=== PATIENT | male | born 1960 | race Asian ===

== ENCOUNTER → 2018-08-26 | Day surgery (SDC) | payer OTHER ==
[2018-08-21 10:24] LABS: BASOPHILS % 0.7 % (0.0-1.0); EOSINOPHILS # (AUTO) 0.7 (0.0-0.4); EOSINOPHILS % 12.3 % (0.0-6.0); HEMATOCRIT 45.7 % (38.2-49.6); LYMPHOCYTES # (AUTO) 1.8 (1.0-3.2); LYMPHOCYTES % 33.8 % (18.0-39.1); MEAN CORPUSCULAR HEMOGLOBIN 30.1 pg (28-32); MEAN CORPUSCULAR HGB CONC 32.8 g/dL (31-35); MEAN CORPUSCULAR VOLUME 91.6 fL (81-99); MONOCYTES # (AUTO) 0.5 (0.2-0.8); MONOCYTES % 9.1 % (4.4-11.3); NEUTROPHILS # (AUTO) 2.4 (2.1-6.9); NEUTROPHILS % 43.7 % (38.7-80.0); PLATELET COUNT 181 x10e3/uL (140-360); RED BLOOD COUNT 4.99 x10e6/uL (4.3-5.7); RED CELL DISTRIBUTION WIDTH 13.7 % (11.7-14.4)
[2018-08-21 10:29] LABS: INR 0.89; PROTHROMBIN TIME 12.5 seconds (11.9-14.5)
[2018-08-21 10:50] LABS: ALANINE AMINOTRANSFERASE 21 IU/L (0-55); ALBUMIN 4.1 g/dL (3.5-5.0); ALBUMIN/GLOBULIN RATIO 1.2 (0.8-2.0); ALKALINE PHOSPHATASE 48 IU/L (40-150); ANION GAP 11.3 mmol/L (8-16); BLOOD UREA NITROGEN 14 mg/dL (7-26); BUN/CREATININE RATIO 16 (6-25); CALCIUM 9.5 mg/dL (8.4-10.2); CARBON DIOXIDE 28 mmol/L (22-29); CHLORIDE 104 mmol/L (98-107); CREATININE, SERUM 0.85 mg/dL (0.72-1.25); EST GLOMERULAR FILTRATION RATE > 60 ML/MIN (60-); GLUCOSE 92 mg/dL (74-118); POTASSIUM 4.3 mmol/L (3.5-5.1); SODIUM 139 mmol/L (136-145)
[~2018-08-26] MED LIST: ACETAMINOPHEN/CODEINE 300MG - 30MG TAB ONE; CRESTOR10 MG PO; DIPHENHYDRAMINE25 MG PO; FENTANYL CITRATE/PF 100MCG/2 ML INJ ONE; MIDAZOLAM HCL 2 MG/2 ML VIAL ONE; PROPOFOL IV EMULSION 10 MG/ML 50 ML VIAL ONE; VITAMIN D32000 UNI1 PEG; VITAMIN E400 UNI5 PO
--- OUTSIDE RECORDS SUMMARY | 2018-08-26 05:29 | XMS REPORT | Clinical Summary ---
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 Suspended cholecalciferol, vitamin Take by mouth 0 D3, (VITAMIN D3) 2,000 daily . unit Cap Suspended docosahexanoic acid/epa Take 1,400 mg 0 (FISH OIL ORAL) by mouth daily. Suspended rosuvastatin (CRESTOR) 10 Take 10 mg by 0 MG tablet mouth daily. Suspended diphenhydrAMINE Take 25 mg by 0 (BENADRYL) 25 mg capsule mouth every night as needed for Itching Zzzquil brand name . 08/26/2017 docusate sodium (COLACE) Take 1 10 capsule 0 100 MG capsule capsule (100 8 mg total) by mouth 2 (two) times daily for 10 days. 08/26/2017 traMADol (ULTRAM) 50 mg Take 2 50 tablet 0 tablet tablets (100 8 mg total) by mouth every 6 (six) hours as needed for up to 10 days. Max Daily Amount: 400 mg 08/26/2017 ibuprofen (ADVIL,MOTRIN) Take 1 tablet 30 tablet 0 400 MG tablet (400 mg 8 total) by mouth every 6 (six) hours as needed for Pain for up to 10 days. Suspended ondansetron (ZOFRAN) 8 MG Take 8 mg by 0 tablet mouth every 8 (eight) hours as needed for Nausea. Active Problems Problem Noted Date Lung cancer 08/13/2017 Cancer of upper lobe of left lung 08/02/2017 Encounters Care Team Description Date Type Specialty Cipriano Peacock MD Cancer of upper lobe of left lung (HCC) 08/21/2018 Hospital Radiology Encounter GillilandJulio Chi 08/21/2018 Orders Only Radiology [facility] Cancer of upper lobe of left lung (HCC) 07/21/2018 Hospital Computed Tomography Encounter Cipriano Peacock MD Cancer of upper lobe of left lung (HCC) (Primary Dx) 07/15/2018 Outside Orders Central Scheduling Laura Lima MD Cancer of upper lobe of left lung (HCC) (Primary Dx) 10/30/2017 Orders Only Lab Laura Lima MD Cancer of upper lobe of left lung (HCC) 10/30/2017 Hospital Radiology Encounter Laura Lima MD Cancer of upper lobe of left lung (HCC) (Primary Dx) 10/28/2017 Outside Orders Central Scheduling after 08/25/2017 Family History Medical History Relation Name Comments Hypertension Father Heart disease Mother Relation Name Status Comments Father Mother Social History Date Tobacco Use Types Packs/Day Years Used Quit: 07/31/1997 Former Smoker 1 Smokeless Tobacco: Never Used Tobacco Cessation: Counseling Given: No Comments: QUIT 1997 Alcohol Use Drinks/Week oz/Week Comments No Sex Assigned at Date Recorded Not on file Industry Job Start Date Occupation Not on file Not on file Not on file Travel End Travel History Travel Start No recent travel history available. Last Filed Vital Signs Time Taken Vital Sign Reading 08/21/2018 12:40 PM CDT Blood Pressure 122/83 08/21/2018 12:40 PM CDT Pulse 63 08/21/2018 12:40 PM CDT Temperature 36.8 C (98.2 F) 08/21/2018 12:40 PM CDT Respiratory Rate 13 08/21/2018 12:40 PM CDT Oxygen Saturation 100% - Inhaled Oxygen - Concentration 08/21/2018 11:00 AM CDT Weight 81.6 kg (180 lb) 08/21/2018 11:00 AM CDT Height 167.6 cm (5' 6") 08/21/2018 11:00 AM CDT Body Mass Index 29.05 Plan of Treatment Not on file Implants Device Identifier Shelf Expiration Date Model / Serial / Lot Implanted Type Area Manufactur er 04/29/2021 [id number] / / [id number] 4x7mm Fiducial Marker Other Left: Bronchus COVIDIEN Implanted: Qty: 1 on 08/02/2017 by Karrie Dickson MD Procedures * The patient is currently admitted. The information in this section might not be complete until the patient is discharged. Comments Procedure Name Priority Date/Time Associated Diagnosis IR PORT REMOVAL Routine 08/21/2018 Cancer of upper lobe of 12:48 PM CDT left lung (HCC) CBC W/PLT COUNT & AUTO Routine 08/21/2018 DIFFERENTIAL 10:49 AM CDT APTT Routine 08/21/2018 10:49 AM CDT PROTHROMBIN TIME/INR Routine 08/21/2018 10:49 AM CDT CBC W/PLT COUNT & AUTO Routine 08/21/2018 DIFFERENTIAL 10:[address] CHEST WITH IV CONTRAST Routine 07/21/2018 Cancer of upper lobe of 9:20 AM CDT left lung (HCC) POCT-CREATININE Routine 07/21/2018 8:49 AM CDT INTRAOPERATIVE PATH 05/23/2018 REPORT - SCAN 10:02 AM CDT IR PORT-A-CATH PLACEMENT Routine 10/30/2017 Cancer of upper lobe of 11:25 AM CDT left lung (HCC) CBC W/PLT COUNT & AUTO STAT 10/30/2017 Cancer of upper lobe of DIFFERENTIAL 8:49 AM CDT left lung (HCC) CBC W/PLT COUNT & AUTO STAT 10/30/2017 Cancer of upper lobe of DIFFERENTIAL 8:49 AM CDT left lung (HCC) PT/APTT STAT 10/30/2017 Cancer of upper lobe of 8:49 AM CDT left lung (HCC) after 08/25/2017 Results * IR Port Removal (08/21/2018 12:48 PM CDT) Specimen Narrative Performed At FINAL REPORT GE RIS Procedure: Removal of right chest port 08/21/2018 HISTORY: Chemotherapy completed Anesthesia: 2% lidocaine Analgesia: 50 mcg fentanyl Approach: Right chest Modality: Fluoroscopy, fluoroscopy time: 0.2 minutes, total dose: 0.7 mGy, reference air kerma method TECHNIQUE: After obtaining written informed consent, this procedure was performed using all elements maximal sterile barrier technique without immediate postprocedural complication. Using blunt and sharp dissection, the right chest port was excised. The pocket was irrigated with gentamycin solution and closed with subcuticular resorbable suture. CONCLUSION: Removal of right chest port Signed: Rola Crowley MD Report Verified Date/Time:08/21/2018 13:31:45 Reading Location: [place] [address] Angio Body Reading Room Procedure Note Interface, External Ris In - 08/21/2018 1:33 PM CDT FINAL REPORT Procedure: Removal of right chest port 08/21/2018 HISTORY: Chemotherapy completed Anesthesia: 2% lidocaine Analgesia: 50 mcg fentanyl Approach: Right chest Modality: Fluoroscopy, fluoroscopy time: 0.2 minutes, total dose: 0.7 mGy, reference air kerma method TECHNIQUE: After obtaining written informed consent, this procedure was performed using all elements maximal sterile barrier technique without immediate postprocedural complication. Using blunt and sharp dissection, the right chest port was excised. The pocket was irrigated with gentamycin solution and closed with subcuticular resorbable suture. CONCLUSION: Removal of right chest port Signed: Rola Crowley MD Report Verified Date/Time: 08/21/2018 13:31:45 Reading Location: [place] [address] Angio Body Reading Room Performing Organization Address City/State/Zipcode Phone Number [facility] * CBC with platelet count + automated diff (08/21/2018 10:49 AM CDT) Only the most recent of 2 results within the time period is included. WBC 5.7 3.5 - 10.5 K/L [facility] RBC 5.26 4.63 - 6.08 M/L [facility] Hemoglobin 15.5 13.7 - 17.5 GM/DL [facility] Hematocrit 49.3 40.1 - 51.0 % [facility] MCV 93.7 (H) 79.0 - 92.2 fL [facility] MCH 29.5 25.7 - 32.2 pg [facility] MCHC 31.4 (L) 32.3 - 36.5 GM/DL [facility] RDW 13.6 11.6 - 14.4 % [facility] Platelets 185 150 - 450 K/CU MM [facility] MPV 9.3 (L) 9.4 - 12.4 fL [facility] nRBC 0 0 - 0 /100 WBC [facility] % Neutros 42 % [facility] % Lymphs 37 % [facility] % Monos 8 % [facility] % Eos 12 % [facility] % Baso 1 % [facility] # Neutros 2.39 1.78 - 5.38 K/L [facility] # Lymphs 2.09 1.32 - 3.57 K/L [facility] # Monos 0.48 0.30 - 0.82 K/L [facility] # Eos 0.68 (H) 0.04 - 0.54 K/L [facility] # Baso 0.04 0.01 - 0.08 K/L [facility] Immature 0 0 - 1 % [facility] Granulocytes-Relative [facility] Specimen Blood Performing Organization Address City/[facility]/Zipcode Phone Number [facility] [address] [place], [place] [phone] [facility] * aPTT (08/21/2018 10:49 AM CDT) PTT 31.0 22.5 - 36.0 seconds [facility] Specimen Blood Performing Organization Address City/[facility] Phone Number [facility] [address] [place], [place] [phone] [facility] * Prothrombin time/INR (08/21/2018 10:49 AM CDT) Protime 12.4 11.9 - 14.2 seconds [facility] INR 1.0 <=5.9 [facility] Specimen Blood Narrative Performed At Effective 07/09/2018: PT Reference Range Change [facility] New: 11.9-14.2Previous: 11.7-14.7 [facility] RECOMMENDED COUMADIN/WARFARIN INR THERAPY RANGES STANDARD DOSE: 2.0-3.0Includes: PROPHYLAXIS for venous thrombosis, systemic embolization; TREATMENT for venous thrombosis and/or pulmonary embolus. HIGH RISK: Target INR is 2.5-3.5 for patients wiht mechanical heart valves. Performing Organization Address [facility] Phone Number [place] [phone] [place] [address] [facility] * CT Chest with IV Contrast (07/21/2018 9:20 AM CDT) Specimen Narrative Performed At FINAL REPORT [employer] EXAM: CT Chest WITH contrast 07/21/2018 9:28 AM INDICATION:cancer upper lobe left lung COMPARISON: CT chest 02/24/2018 and 01/15/2018 TECHNIQUE: Chest was scanned utilizing a multidetector helical scanner from the lung apex through the level of the adrenal glands after administration of IV contrast. Coronal and sagittal reformations were obtained. IV CONTRAST: 100 mL of Isovue-300 ORAL CONTRAST: None COMPLICATIONS: None RADIATION DOSE: Total DLP: 475.5 mGy*cm Estimated effective dose: (DLP x 0.015 x size factor) mSv CTDIvol has been reviewed. It is below the limits set by the Radiation Protocol Committee (RPC). FINDINGS: LINES/ TUBES: Right-sided chest port remains in place. LUNGS AND AIRWAYS:Stable left upper lobectomy postsurgical changes. Mild scarring in the left lower lobe remains stable. A 2 mm groundglass nodule in the right upper lobe on series 2, image 35, previously measured 4 mm. No new pulmonary nodules. Airways are normal. PLEURA: The pleural spaces are clear. HEART AND MEDIASTINUM: The thyroid gland is normal.No mediastinal, hilar or axillary lymphadenopathy.The heart is normal in size. There is no pericardial effusion.Diffuse coronary artery calcifications.The thoracic aorta and pulmonary arteries are unremarkable. UPPER ABDOMEN: Unremarkable. BONES: The visualized bony thorax is within normal limits. SOFT TISSUES: Unremarkable. IMPRESSION: Stable left upper lobectomy postsurgical changes. No recurrent or metastatic disease in the chest. Signed: Loretta Cannon MD Report Verified Date/Time:07/22/2018 14:02:41 Procedure Note Interface, External Ris In - 07/22/2018 2:04 PM CDT FINAL REPORT EXAM: CT Chest WITH contrast 07/21/2018 9:28 AM INDICATION: cancer upper lobe left lung COMPARISON: CT chest 02/24/2018 and 01/15/2018 TECHNIQUE: Chest was scanned utilizing a multidetector helical scanner from the lung apex through the level of the adrenal glands after administration of IV contrast. Coronal and sagittal reformations were obtained. IV CONTRAST: 100 mL of Isovue-300 ORAL CONTRAST: None COMPLICATIONS: None RADIATION DOSE: Total DLP: 475.5 mGy*cm Estimated effective dose: (DLP x 0.015 x size factor) mSv CTDIvol has been reviewed. It is below the limits set by the Radiation Protocol Committee (RPC). FINDINGS: LINES/ TUBES: Right-sided chest port remains in place. LUNGS AND AIRWAYS: Stable left upper lobectomy postsurgical changes. Mild scarring in the left lower lobe remains stable. A 2 mm groundglass nodule in the right upper lobe on series 2, image 35, previously measured 4 mm. No new pulmonary nodules. Airways are normal. PLEURA: The pleural spaces are clear. HEART AND MEDIASTINUM: The thyroid gland is normal. No mediastinal, hilar or axillary lymphadenopathy. The heart is normal in size. There is no pericardial effusion. Diffuse coronary artery calcifications. The thoracic aorta and pulmonary arteries are unremarkable. UPPER ABDOMEN: Unremarkable. BONES: The visualized bony thorax is within normal limits. SOFT TISSUES: Unremarkable. IMPRESSION: Stable left upper lobectomy postsurgical changes. No recurrent or metastatic disease in the chest. Signed: Loretta Cannon MD Report Verified Date/Time: 07/22/2018 14:02:41 Performing Organization Address City/[facility] Phone Number [employer] * POC-Creatinine (07/21/2018 8:49 AM CDT) POC-Creatinine 1.0Comment: TESTED AT [facility] 0.6 - 1.3 mg/dL [place] [id number] [place] [address] POC-EGFR 77 mL/min/1.73M2 [facility] Specimen Blood Performing Organization Address [facility] Phone Number [facility] [address] [place] [address] [phone] [place] [address] * INTRAOPERATIVE PATH REPORT - SCAN (05/23/2018 10:02 AM CDT) Narrative Performed At * IR Port-a-Cath Placement (10/30/2017 11:25 AM CDT) Specimen Narrative Performed At FINAL REPORT [facility] HISTORY: Lung cancer PROCEDURE: Following informed written consent, the patient's right cervical region and anterior chest wall were prepped draped in the usual sterile manner and maximum sterile barrier techniques were utilized. 2% lidocaine was given locally for anesthesia. Additionally, the patient received 1 mg IV Versed and 50 mcg IV fentanyl for conscious sedation and pain control. Vital signs were monitored and remained stable. 1 g IV vancomycin was given prior to the procedure for antibiotic prophylaxis. Conscious sedation and continuous patient monitoring were performed by the attending radiologist and a registered nurse for approximately 30 minutes during the procedure. Access was gained to the right internal jugular vein using ultrasound guidance a micropuncture needle. A short transverse incision was made in the right anterior chest wall. Using blunt dissection, a subcutaneous pocket was created just beneath the incision. The micah catheter was tunneled from the pocket to the jugular access site in place through a peel-away sheath into position centrally under fluoroscopic control. The catheter was cut to appropriate length and attached to the portacatheter reservoir which was subsequently buried in the subcutaneous. The pocket was irrigated using an antibiotic solution enclosed using 3-0 Monocryl resorbable suture. Steri-Strips, dermabond and a sterile bandage were applied. There were no immediate complications. Patient was discharged from the department in stable condition. FINDINGS: Spot film of the chest following portacatheter placement demonstrates the portacatheter to lie in expected position with its tip over the caval atrial junction. There is no pneumothorax. Ultrasound image obtained prior to port placement demonstrates a patent and compressible right internal jugular vein without evidence for thrombosis. Ultrasound image of the right internal jugular vein was obtained and archived on PACs. IMPRESSION: 1. Successful uncomplicated placement of a right internal jugular chest port. Fluoroscopy time: 0.6 minutes Estimated dose in (Ka,r): 4.3 mGy Signed: Fausto Dunn MD Report Verified Date/Time:10/30/2017 15:40:30 Reading Location: [place] [address] Angio Body Reading Room Procedure Note Interface, External Ris In - 10/30/2017 3:42 PM CDT FINAL REPORT HISTORY: Lung cancer PROCEDURE: Following informed written consent, the patient's right cervical region and anterior chest wall were prepped draped in the usual sterile manner and maximum sterile barrier techniques were utilized. 2% lidocaine was given locally for anesthesia. Additionally, the patient received 1 mg IV Versed and 50 mcg IV fentanyl for conscious sedation and pain control. Vital signs were monitored and remained stable. 1 g IV vancomycin was given prior to the procedure for antibiotic prophylaxis. Conscious sedation and continuous patient monitoring were performed by the attending radiologist and a registered nurse for approximately 30 minutes during the procedure. Access was gained to the right internal jugular vein using ultrasound guidance a micropuncture needle. A short transverse incision was made in the right anterior chest wall. Using blunt dissection, a subcutaneous pocket was created just beneath the incision. The micah catheter was tunneled from the pocket to the jugular access site in place through a peel-away sheath into position centrally under fluoroscopic control. The catheter was cut to appropriate length and attached to the portacatheter reservoir which was subsequently buried in the subcutaneous. The pocket was irrigated using an antibiotic solution enclosed using 3-0 Monocryl resorbable suture. Steri-Strips, dermabond and a sterile bandage were applied. There were no immediate complications. Patient was discharged from the department in stable condition. FINDINGS: Spot film of the chest following portacatheter placement demonstrates the portacatheter to lie in expected position with its tip over the caval atrial junction. There is no pneumothorax. Ultrasound image obtained prior to port placement demonstrates a patent and compressible right internal jugular vein without evidence for thrombosis. Ultrasound image of the right internal jugular vein was obtained and archived on PACs. IMPRESSION: 1. Successful uncomplicated placement of a right internal jugular chest port. Fluoroscopy time: 0.6 minutes Estimated dose in (Ka,r): 4.3 mGy Signed: Fausto Dunn MD Report Verified Date/Time: 10/30/2017 15:40:30 Reading Location: [place] [address] Angio Body Reading Room Performing Organization Address City/[facility] Phone Number GE [facility] * PT/aPTT (10/30/2017 8:49 AM CDT) Protime 12.5 11.7 - 14.7 seconds [facility] INR 0.9 <=5.9 [facility] PTT 29.8 22.5 - 36.0 seconds [facility] Specimen Blood Narrative Performed At RECOMMENDED COUMADIN/WARFARIN INR THERAPY RANGES [facility] STANDARD DOSE: 2.0 - 3.0 Includes: PROPHYLAXIS for venous thrombosis, [facility] systemic embolization; TREATMENT for venous thrombosis and/or pulmonary embolus. HIGH RISK: Target INR is 2.5-3.5 for patients with mechanical heart valves. Performing Organization Address City/[facility] Phone Number [facility] [address] [place] [address] [facility] after 08/25/2017 Insurance Payer Benefit Subscriber ID Type Phone Address Plan / Group [employer] xxxxxxxxxx [employer] EXCHANGE Advance Directives For more information, please contact: [address] [phone] Date Inactivated Comments Code Status Date Activated 08/16/2017 6:01 PM Full Code 08/13/2017 5:33 AM This code status was determined by: Patient
--- OUTSIDE RECORDS SUMMARY | 2018-08-26 05:30 | XMS REPORT | Continuity of Care Document ---
Author Author [employer] Organization [employer] Address Unknown Phone Unavailable Care Team Providers Care Analyst Microbiology Lab Name Role Phone [employer] Unavailable Unavailable Problems Problem Status Onset Date Classification Date Reported Comments Source Chronic hepatitis B Active Diagnosis 11/09/2017 Giinder Gates Mixed hyperlipidemia Active Diagnosis 11/09/2017 Giinder Gates Body mass index 29.0-29.9, adult Active Diagnosis 07/21/2016 Giinder Williamson Gates Encounter for general adult medical examination with abnormal findings Active Diagnosis 05/10/2017 Giinder Gates Osteoarthritis of spine with radiculopathy, cervical region Active Diagnosis 11/09/2017 Giinder Almanzaroc Gates Encounter for screening for malignant neoplasm of prostate Active Diagnosis 05/10/2017 Giinder Gates Lung mass Active Problem 10/12/2017 Giinder Gates Prediabetes Active Problem 11/09/2017 Giinder Gates Body mass index 30.0-30.9, adult Active Diagnosis 05/10/2017 Giinder Gates Subacute sinusitis, unspecified location Active Diagnosis 05/10/2017 Giinder Gates Obesity Active Diagnosis 05/10/2017 Giinder Gates Seasonal allergic rhinitis, unspecified trigger Active Diagnosis 11/09/2017 Giinder Gates Body mass index 27.0-27.9, adult Active Diagnosis 10/12/2017 Giinder Gates Malignant neoplasm of left lung, unspecified part of lung Active Diagnosis 11/09/2017 Giinder Gates Cold Active Diagnosis 10/12/2017 Giinder Gates Status post pneumonectomy Active Problem 11/09/2017 Giinder Gates Personal history of lung cancer Active Problem 11/09/2017 Giinder Gates Body mass index 28.0-28.9, adult Active Diagnosis 11/09/2017 Giinder Almanzaroc Gates Encounter for immunization Active Diagnosis 11/09/2017 Giinder Gates Hepatitis B Active Problem 07/29/2015 Tashi Gates Pruritus Active Diagnosis 07/29/2015 Tashi Youngbloodang Encounter for general adult medical examination without abnormal findings Active Diagnosis 07/29/2015 Tashi Gates Medications Medication Details Route Status Patient Instructions Ordering Provider Order Date Source Zithromax Z-Adrien 2 tablets on the first day, then 1 tablet daily for 4 days Orally Active 250 MG Orally Once a day [facility] 10/10/2017 Tashi Youngbloodang Zithromax Z-Adrien 2 tablets on the first day, then 1 tablet daily for 4 days Orally Active 250 MG Orally Once a day [facility] 09/04/2017 Tashi Gates Mucinex DM 1 tablet as needed Orally Active 30-600 MG Orally every 12 hrs [facility] 09/04/2017 Tashi Gates Tramadol HCl 1 tablet as needed Orally Active 50 MG Orally BID [facility] 09/04/2017 Tashi Gates PredniSONE 1 tablet with food or milk Orally Active 10 MG Orally Once a day [facility] 05/08/2017 Tashi Gates Azelastine HCl 1 drop into affected eye Ophthalmic Active 0.05 % Ophthalmic Twice a day [facility] 05/08/2017 Tashi Gates Pazeo 1 drop to affected eyes Eyes Active 0.7 % Eyes once a day [facility] 05/08/2017 Tashi Teri Gates Ceftin 1 tab Orally Active 500 MG Orally BID [facility] 05/08/2017 [facility] Flutic[facility] Propionate 1 spray in each nostril Nasally Active 50 MCG/DOSE Nasally Twice a day [facility] 05/08/2017 Tashi Teri Gates Gabapentin 1 capsule at bedtime Orally Active 300 MG Orally once a day [facility] 07/18/2016 [facility] Clotrimazole-Betamethasone 1 application to affected area Externally Active 1-0.05 % Externally Twice a day [facility] 07/18/2016 Tashi Almanzaroc Gates Clotrimazole 1 application to affected area Externally Active 1 % Externally Twice a day [facility] 05/16/2015 [facility] HydrOXYzine HCl 1 tab Orally Active 25 MG Orally Three times a day [facility] Triamcinolone Acetonide 1 application to affected area Externally Active 0.1 % Externally Twice a day SALAZARVINCENT Gates Crestor 1 tablet Orally Active 10 MG Orally Once a day SALAZARVINCENT Gates HydrOXYzine HCl 1 tab Orally Active 25 MG Orally Three times a day MARTIN Gates Gabapentin 1 capsule at bedtime Orally Active 300 MG Orally once a day MARTIN Gates Triamcinolone Acetonide 1 application to affected area Externally Active 0.1 % Externally Twice a day SALAZARSHELIA Gates Clotrimazole-Betamethasone 1 application to affected area Externally Active 1-0.05 % Externally Twice a day SALAZARSHELIA Gates Crestor 1 tablet Orally Active 10 MG Orally Once a day SALAZARVINCENT Gates Fluticasone Propionate 1 spray in each nostril Nasally Active 50 MCG/DOSE Nasally Twice a day MARTIN Gates Azelastine HCl 1 drop into affected eye Ophthalmic Active 0.05 % Ophthalmic Twice a day SALAZARSHELIA Gates Mucinex DM 1 tablet as needed Orally Active 30-600 MG Orally every 12 hrs SALAZARSHELIA Gates Tramadol HCl 1 tablet as needed Orally Active 50 MG Orally BID SALAZARSHELIA Gates Allergies, Adverse Reactions, Alerts Substance Category Reaction Severity Reaction type Status Date Reported Comments Source N.K.D.A. Adverse Reaction Info Not Available Adverse Reaction Active 11/06/2017 Tashi Gates Immunizations Immunization Date Given Site Status Last Updated Comments Source FLUCELVAX QUADRIVALENT 11/06/2017 completed Tashi Gates FLUCELVAX QUADRIVALENT 01/09/2017 completed Tashi Gates Results No Data Provided for This Section Pathology Reports No Data Provided for This Section Diagnostic Reports No Data Provided for This Section Consultation Notes No Data Provided for This Section Discharge Summaries No Data Provided for This Section History and Physicals No Data Provided for This Section Vital Signs Vital Sign Value Date Comments Source Weight 180 11/06/2017 Tashi Gates Height 67 11/06/2017 Tashi Gates Heart Rate 73 11/06/2017 Tashi Gates Diastolic (mm Hg) 81 11/06/2017 Tashi Gates Systolic (mm Hg) 122 11/06/2017 Tashi Gates Weight 174 10/10/2017 Giao Teri Gates Height 67 10/10/2017 Giao Teri Gates Heart Rate 93 10/10/2017 Giao Teri Gates Diastolic (mm Hg) 74 10/10/2017 Giao Teri Gates Systolic (mm Hg) 114 10/10/2017 Giao Teri Gates Weight 177 09/04/2017 Giao Teri Gates Height 67 09/04/2017 Giao Teri Gates Heart Rate 94 09/04/2017 Giao Teri Gates Diastolic (mm Hg) 80 09/04/2017 Giao Teri Gates Systolic (mm Hg) 122 09/04/2017 Giao Teri Gates Weight 193.4 05/08/2017 Giao Teri Gates Height 67 05/08/2017 Giao Teri Gates Heart Rate 70 05/08/2017 Giao Teri Gates Diastolic (mm Hg) 69 05/08/2017 Giao Teri Gates Systolic (mm Hg) 113 05/08/2017 Giao Teri Gates Weight 193 01/09/2017 Giao Teri Gates Height 67 01/09/2017 Giao Teri Gates Heart Rate 76 01/09/2017 Giao Teri Gates Diastolic (mm Hg) 84 01/09/2017 Giao Teri Gates Systolic (mm Hg) 123 01/09/2017 Giao Teri Gates Weight 189.9 07/18/2016 Giao Teri Gates Height 67 07/18/2016 Giao Teri Gates Heart Rate 72 07/18/2016 Giao Teri Gates Diastolic (mm Hg) 83 07/18/2016 Giao Teri Gates Systolic (mm Hg) 125 07/18/2016 Giao Teri Agtes Weight 186.7 05/16/2015 Giao Teri Gates Height 67 05/16/2015 Giao Teri Gates Heart Rate 71 05/16/2015 Giao Teri Gates Diastolic (mm Hg) 64 05/16/2015 Giao Teri Gates Systolic (mm Hg) 115 05/16/2015 Giao Teri Gates Encounters Location Location Details Encounter Type Encounter Number Reason For Visit Attending Provider ADM Date DC Date Status Source Tashi Gates MD PA Consult [id number] 04/05/2014 04/05/2014 Tashi Gates MD PA Follow- Up [id number] 07/05/2014 07/05/2014 Tashi Gates MD PA Blood Test Result [id number] 08/16/2014 08/16/2014 Tashi Gates MD PA Blood Test [id number] 12/03/2014 12/03/2014 Tashi Gates MD PA Follow- Up [id number] 05/16/2015 05/16/2015 Tashi Gates Procedures No Data Provided for This Section Assessment and Plan No Data Provided for This Section Plan of Care No Data Provided for This Section Social History Social History Date Source Social History ElementQualifiersDate Reported drug use . no, no August 16, 2015 Tobacco Use: . Are you a: nonsmoker, Are you a: nonsmoker August 16, 2015 Pets: . NO, NO August 16, 2015 Marital Status: . , August 16, 2015 Caffeine: . YES, YES August 16, 2015 Alcohol: . yes, socially, beer, LIQUOR, WINE, yes, socially, beer, LIQUOR, WINE August 16, 2015 08/16/2015 Tashi Gates Family History Value Date Source QualifierDescriptionCommentDate Reported Maternal Grandmother Comment not available August 16, 2015 Paternal Grandmother Comment not available August 16, 2015 Siblings Comment not available August 16, 2015 Maternal Grandfather Comment not available August 16, 2015 Children Comment not available August 16, 2015 Father Comment not available August 16, 2015 Paternal Grandfather Comment not available August 16, 2015 Mother Comment not available August 16, 2015 Other: Comment not available August 16, 2015 07/29/2015 Tashi Gates Advance Directives No Data Provided for This Section Functional Status No Data Provided for This Section
--- OUTSIDE RECORDS SUMMARY | 2018-08-26 05:31 | XMS REPORT ---
Author Author KIM GILLILAND Organization [employer] Address Unknown Phone Unavailable Care Team Providers Care Hospice Chaplain Name Role Phone KIM GILLILAND CP Unavailable Allergies, Adverse Reactions, Alerts Substance Reaction Event Type N.K.D.A. Info Not Available Non Drug Allergy Problems Problem Type Condition Code Onset Dates Condition Status Assessment Body mass index 29.0-29.9, adult Z68.29 Active Problem Chronic hepatitis B B18.1 Active Assessment Encounter for general adult medical examination with abnormal findings Z00.01 Active Problem Mixed hyperlipidemia E78.2 Active Assessment Osteoarthritis of spine with radiculopathy, cervical region M47.22 Active Assessment Mixed hyperlipidemia E78.2 Active Assessment Chronic hepatitis B B18.1 Active Assessment Encounter for screening for malignant neoplasm of prostate Z12.5 Active Medications Medication Code System Code Instructions Start Date End Date Status Dosage Gabapentin [facility] [address]-78 300 MG Orally once a day July 18, 2016 Active 1 capsule at bedtime HydrOXYzine HCl [facility] [address]-69 25 MG Orally Three times a day Active 1 tab Triamcinolone Acetonide [facility] [address]-17 0.1 % Externally Twice a day Active 1 application to affected area Crestor [facility] [address]-92 10 MG Orally Once a day Active 1 tablet Clotrimazole-Betamethasone [facility] [address]-93 1-0.05 % Externally Twice a day July 18, 2016 Sep 16, 2016 Active 1 application to affected area Vital Signs Date/Time: July 18, 2016 BMI 29.74 Index Weight 189.9 lbs Height 67 in Cardiac Monitoring Heart Rate 72 /min Blood Pressure Diastolic 83 mm Hg Blood Pressure Systolic 125 mm Hg Results No Known Results Summary Purpose [employer] Submission
--- OUTSIDE RECORDS SUMMARY | 2018-08-26 05:31 | XMS REPORT ---
Author Author KIM GILLILAND Organization [employer] Address Unknown Phone Unavailable Care Team Providers Care Senior Marketing Data Analyst Name Role Phone KIM GILLILAND CP Unavailable Allergies No Known Allergies Problems Problem Type Condition Code Onset Dates Condition Status Problem Chronic hepatitis B B18.1 Active Problem Mixed hyperlipidemia E78.2 Active Medications No Known Medications Results No Known Results Summary Purpose [employer] Submission
--- OUTSIDE RECORDS SUMMARY | 2018-08-26 05:32 | XMS REPORT ---
Author Author KIM GILLILAND Organization [employer] Address Unknown Phone Unavailable Care Team Providers Care Tearoom Hostess Name Role Phone IKM GILLILAND CP Unavailable Allergies No Known Allergies Problems Problem Type Condition Code Onset Dates Condition Status Problem Lung mass R91.8 Active Problem Chronic hepatitis B B18.1 Active Problem Mixed hyperlipidemia E78.2 Active Problem Prediabetes R73.03 Active Medications No Known Medications Results No Known Results Summary Purpose [employer] Submission
--- OUTSIDE RECORDS SUMMARY | 2018-08-26 05:32 | XMS REPORT ---
Author Author KIM GILLILAND Organization [employer] Address Unknown Phone Unavailable Care Team Providers Care Hardwood Faller Name Role Phone KIM GILLILAND CP Unavailable Allergies, Adverse Reactions, Alerts Substance Reaction Event Type N.K.D.A. Info Not Available Non Drug Allergy Problems Problem Type Condition Code Onset Dates Condition Status Problem Chronic hepatitis B B18.1 Active Assessment Osteoarthritis of spine with radiculopathy, cervical region M47.22 Active Problem Mixed hyperlipidemia E78.2 Active Assessment Influenza vaccination administered at current visit Z23 Active Assessment Body mass index 30.0-30.9, adult Z68.30 Active Assessment Chronic hepatitis B B18.1 Active Assessment Mixed hyperlipidemia E78.2 Active Medications Medication Code System Code Instructions Start Date End Date Status Dosage HydrOXYzine HCl [facility] 91300262809 25 MG Orally Three times a day Active 1 tab Gabapentin [facility] 78693327117 300 MG Orally once a day Active 1 capsule at bedtime Triamcinolone Acetonide [facility] 05528976672 0.1 % Externally Twice a day Active 1 application to affected area Clotrimazole-Betamethasone ND 59157307215 1-0.05 % Externally Twice a day Active 1 application to affected area Crestor [facility] 70261015300 10 MG Orally Once a day Active 1 tablet Vital Signs Date/Time: Jan 09, 2017 BMI 30.22 Index Weight 193 lbs Height 67 in Cardiac Monitoring Heart Rate 76 /min Blood Pressure Diastolic 84 mm Hg Blood Pressure Systolic 123 mm Hg Results No Known Results Immunizations Vaccine Administration Date FLUCELVAX QUADRIVALENT Jan 09, 2017 Summary Purpose [employer] Submission
--- OUTSIDE RECORDS SUMMARY | 2018-08-26 05:32 | XMS REPORT ---
Author Author KIM GILLILAND Organization [employer] Address Unknown Phone Unavailable Care Team Providers Care Transformation Consultant Name Role Phone KIM GILLILAND CP Unavailable Allergies, Adverse Reactions, Alerts Substance Reaction Event Type N.K.D.A. Info Not Available Non Drug Allergy Problems Problem Type Condition Code Onset Dates Condition Status Assessment Subacute sinusitis, unspecified location J01.90 Active Assessment Body mass index 30.0-30.9, adult Z68.30 Active Assessment Encounter for screening for malignant neoplasm of prostate Z12.5 Active Assessment Obesity (BMI 30.0-34.9) E66.9 Active Assessment Seasonal allergic rhinitis, unspecified trigger J30.2 Active Problem Chronic hepatitis B B18.1 Active Assessment Osteoarthritis of spine with radiculopathy, cervical region M47.22 Active Problem Mixed hyperlipidemia E78.2 Active Assessment Mixed hyperlipidemia E78.2 Active Assessment Colon cancer screening Z12.11 Active Assessment Encounter for general adult medical examination with abnormal findings Z00.01 Active Assessment Chronic hepatitis B B18.1 Active Medications Medication Code System Code Instructions Start Date End Date Status Dosage Crestor [facility] 39598375076 10 MG Orally Once a day Active 1 tablet Triamcinolone Acetonide [facility] 40006466970 0.1 % Externally Twice a day Active 1 application to affected area HydrOXYzine HCl [facility] 94464167329 25 MG Orally Three times a day Active 1 tab PredniSONE ND 82044802581 10 MG Orally Once a day May 08, 2017 May 15, 2017 Active 1 tablet with food or milk Gabapentin ND 86819451720 300 MG Orally once a day Inactive 1 capsule at bedtime Azelastine HCl [facility] 90698378960 0.05 % Ophthalmic Twice a day May 08, 2017 Active 1 drop into affected eye Pazeo ND 06784952801 0.7 % Eyes once a day May 08, 2017 August 06, 2017 Active 1 drop to affected eyes Ceftin ND 39764843171 500 MG Orally BID May 08, 2017 May 15, 2017 Active 1 tab Fluticasone Propionate [facility] 68469028268 50 MCG/DOSE Nasally Twice a day May 08, 2017 Active 1 spray in each nostril Vital Signs Date/Time: May 08, 2017 BMI 30.29 Index Weight 193.4 lbs Height 67 in Cardiac Monitoring Heart Rate 70 /min Blood Pressure Diastolic 69 mm Hg Blood Pressure Systolic 113 mm Hg Results No Known Results Summary Purpose [employer] Submission
--- OUTSIDE RECORDS SUMMARY | 2018-08-26 05:32 | XMS REPORT ---
Author Author KIM GILLILAND Organization [employer] Address Unknown Phone Unavailable Care Team Providers Care Convolute Tube Winder Name Role Phone KIM GILLILAND CP Unavailable Allergies, Adverse Reactions, Alerts Substance Reaction Event Type N.K.D.A. Info Not Available Non Drug Allergy Problems Problem Type Condition Code Onset Dates Condition Status Assessment Body mass index (BMI) 27.0-27.9, adult Z68.27 Active Assessment Seasonal allergic rhinitis, unspecified trigger J30.2 Active Assessment Malignant neoplasm of left lung, unspecified part of lung C34.92 Active Problem Lung mass R91.8 Active Problem Chronic hepatitis B B18.1 Active Problem Mixed hyperlipidemia E78.2 Active Assessment Chronic hepatitis B B18.1 Active Assessment Mixed hyperlipidemia E78.2 Active Problem Prediabetes R73.03 Active Assessment Osteoarthritis of spine with radiculopathy, cervical region M47.22 Active Medications Medication Code System Code Instructions Start Date End Date Status Dosage Zithromax Z-Adrien [facility] 73020650946 250 MG Orally Once a day September 04, 2017 September 09, 2017 Active 2 tablets on the first day, then 1 tablet daily for 4 days Mucinex DM [facility] 89398123147 30-600 MG Orally every 12 hrs September 04, 2017 Dec 03, 2017 Active 1 tablet as needed Crestor ND 29377578261 10 MG Orally Once a day Active 1 tablet Fluticasone Propionate ND 40408748012 50 MCG/DOSE Nasally Twice a day Active 1 spray in each nostril HydrOXYzine HCl ND 32733022279 25 MG Orally Three times a day Active 1 tab Azelastine HCl [facility] 91031269881 0.05 % Ophthalmic Twice a day Active 1 drop into affected eye Tramadol HCl ND 68429372608 50 MG Orally BID September 04, 2017 Nov 03, 2017 Active 1 tablet as needed Gabapentin ND 08881438861 300 MG Orally once a day Inactive 1 capsule at bedtime Vital Signs Date/Time: September 04, 2017 BMI 27.72 Index Weight 177 lbs Height 67 in Cardiac Monitoring Heart Rate 94 /min Blood Pressure Diastolic 80 mm Hg Blood Pressure Systolic 122 mm Hg Results No Known Results Summary Purpose [employer] Submission
--- OUTSIDE RECORDS SUMMARY | 2018-08-26 05:32 | XMS REPORT ---
Author Author KIM GILLILAND Organization [employer] Address Unknown Phone Unavailable Care Team Providers Care Blood Bank Laboratory Technologist Name Role Phone KIM GILLILAND CP Unavailable Allergies No Known Allergies Problems Problem Type Condition Code Onset Dates Condition Status Problem Lung mass R91.8 Active Problem Chronic hepatitis B B18.1 Active Problem Mixed hyperlipidemia E78.2 Active Problem Prediabetes R73.03 Active Medications No Known Medications Results No Known Results Summary Purpose [employer] Submission
--- OUTSIDE RECORDS SUMMARY | 2018-08-26 05:32 | XMS REPORT ---
Author Author KIM GILLILAND Organization [employer] Address Unknown Phone Unavailable Care Team Providers Care Screen Vent Binder Name Role Phone KIM GILLILAND CP Unavailable Allergies No Known Allergies Problems Problem Type Condition Code Onset Dates Condition Status Problem Lung mass R91.8 Active Problem Chronic hepatitis B B18.1 Active Problem Mixed hyperlipidemia E78.2 Active Problem Prediabetes R73.03 Active Medications No Known Medications Results No Known Results Summary Purpose [employer] Submission
--- OUTSIDE RECORDS SUMMARY | 2018-08-26 05:32 | XMS REPORT ---
Author Author KIM GILLILAND Organization [employer] Address Unknown Phone Unavailable Care Team Providers Care Vascular Radiologist Name Role Phone KIM GILLILAND CP Unavailable Allergies No Known Allergies Problems Problem Type Condition Code Onset Dates Condition Status Problem Lung mass R91.8 Active Problem Chronic hepatitis B B18.1 Active Problem Mixed hyperlipidemia E78.2 Active Problem Prediabetes R73.03 Active Medications No Known Medications Results No Known Results Summary Purpose [employer] Submission
--- OUTSIDE RECORDS SUMMARY | 2018-08-26 05:33 | XMS REPORT ---
Author Author KIM GILLILAND Organization [employer] Address Unknown Phone Unavailable Care Team Providers Care Skilled Nursing Professional Name Role Phone KIM GILLILAND CP Unavailable Allergies, Adverse Reactions, Alerts Substance Reaction Event Type N.K.D.A. Info Not Available Non Drug Allergy Problems Problem Type Condition Code Onset Dates Condition Status Assessment Malignant neoplasm of left lung, unspecified part of lung C34.92 Active Assessment Mixed hyperlipidemia E78.2 Active Assessment Seasonal allergic rhinitis, unspecified trigger J30.2 Active Assessment Body mass index (BMI) 27.0-27.9, adult Z68.27 Active Problem Lung mass R91.8 Active Problem Chronic hepatitis B B18.1 Active Problem Mixed hyperlipidemia E78.2 Active Assessment Osteoarthritis of spine with radiculopathy, cervical region M47.22 Active Assessment Chronic hepatitis B B18.1 Active Problem Prediabetes R73.03 Active Assessment Cold J00 Active Medications Medication Code System Code Instructions Start Date End Date Status Dosage HydrOXYzine HCl [facility] 79356065915 25 MG Orally Three times a day Active 1 tab Fluticasone Propionate [facility] 34520777245 50 MCG/DOSE Nasally Twice a day Active 1 spray in each nostril Azelastine HCl [facility] 13821947106 0.05 % Ophthalmic Twice a day Active 1 drop into affected eye Mucinex DM [facility] 68325909271 30-600 MG Orally every 12 hrs Active 1 tablet as needed Clotrimazole-Betamethasone ND 34256238614 1-0.05 % Externally Twice a day Active 1 application to affected area Gabapentin ND 88700853103 300 MG Orally once a day Inactive 1 capsule at bedtime Crestor [facility] 40744773689 10 MG Orally Once a day Active 1 tablet Tramadol HCl [facility] 59125486399 50 MG Orally BID Active 1 tablet as needed Zithromax Z-Adrien ND 98505117223 250 MG Orally Once a day Oct 10, 2017 Oct 15, 2017 Active 2 tablets on the first day, then 1 tablet daily for 4 days Vital Signs Date/Time: Oct 10, 2017 BMI 27.25 Index Weight 174 lbs Height 67 in Cardiac Monitoring Heart Rate 93 /min Blood Pressure Diastolic 74 mm Hg Blood Pressure Systolic 114 mm Hg Results No Known Results Summary Purpose [employer]Works Submission
--- OUTSIDE RECORDS SUMMARY | 2018-08-26 05:33 | XMS REPORT ---
Author Author KIM GILLILAND Organization [employer] Address Unknown Phone Unavailable Care Team Providers Care Manager Loan Name Role Phone KIM GILLILAND Unavailable Allergies, Adverse Reactions, Alerts Substance Reaction Event Type N.K.D.A. Info Not Available Non Drug Allergy Encounters Encounter Location Date Blood Test Tashi Gates MD [place] Dec 03, 2014 Follow-Up Tashi Gates MD [place] May 16, 2015 Consult MD PRASANNA Martinez Apr 05, 2014 Follow-Up MD PRASANNA Martinez July 05, 2014 Blood Test Result MD PRASANNA Martinez August 16, 2014 Problems Problem Type Condition ICD-9 Code Onset Dates Condition Status Problem Mixed hyperlipidemia E78.2 Active Assessment Mixed hyperlipidemia E78.2 Active Problem Hepatitis B B19.10 Active Assessment Pruritus L29.9 Active Assessment Body mass index 29.0-29.9, adult Z68.29 Active Assessment Encounter for general adult medical examination without abnormal findings Z00.00 Active Assessment Hepatitis B B19.10 Active Medications Medication Code System Code Instructions Start Date End Date Status Dosage [facility] [address]-84 0.1 % Externally Twice a day Active 1 application to affected area Clotrimazole [facility] [address]-13 1 % Externally Twice a day May 16, 2015 June 05, 2015 Active 1 application to affected area Crestor MEDISPAN [address]-92 10 MG Orally Once a day Active 1 tablet HydrOXYzine HCl [facility] [address]-88 25 MG Orally Three times a day Active 1 tab Social History Social History Element Qualifiers Date Reported drug use . no, no August 16, 2015 Tobacco Use: . Are you a: nonsmoker, Are you a: nonsmoker August 16, 2015 Pets: . NO, NO August 16, 2015 Marital Status: . , August 16, 2015 Caffeine: . YES, YES August 16, 2015 Alcohol: . yes, socially, beer, LIQUOR, WINE, yes, socially, beer, LIQUOR, WINE August 16, 2015 Family history Qualifier Description Comment Date Reported Maternal Grandmother Comment not available August [...] Other: Comment not available August 16, 2015 Vital Signs Date/Time: May 16, 2015 Weight 186.7 lbs Height 67 in Cardiac Monitoring Heart Rate 71 /min Blood Pressure Diastolic 64 mm Hg Blood Pressure Systolic 115 mm Hg Summary Purpose [employer] Submission
--- OUTSIDE RECORDS SUMMARY | 2018-08-26 05:33 | XMS REPORT ---
Author Author KIM GILLILAND Organization [employer] Address Unknown Phone Unavailable Care Team Providers Care It Help Desk Associate Name Role Phone KIM GILLILAND CP Unavailable Allergies, Adverse Reactions, Alerts Substance Reaction Event Type N.K.D.A. Info Not Available Non Drug Allergy Problems Problem Type Condition Code Onset Dates Condition Status Assessment Osteoarthritis of spine with radiculopathy, cervical region M47.22 Active Assessment Mixed hyperlipidemia E78.2 Active Assessment Seasonal allergic rhinitis, unspecified trigger J30.2 Active Problem 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 Active Problem Prediabetes R73.03 Active Problem Personal history of lung cancer Z85.118 Active Assessment Chronic hepatitis B B18.1 Active Problem Mixed hyperlipidemia E78.2 Active Problem Chronic hepatitis B B18.1 Active Assessment Personal history of lung cancer Z85.118 Active Assessment Prediabetes R73.03 Active Assessment Body mass index (BMI) 28.0-28.9, adult Z68.28 Active Assessment Encounter for immunization Z23 Active Assessment 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 Active Assessment Malignant neoplasm of left lung, unspecified part of lung C34.92 Active Medications Medication Code System Code Instructions Start Date End Date Status Dosage Fluticasone Propionate [facility] [id number] 50 MCG/DOSE Nasally Twice a day Active 1 spray in each nostril Gabapentin ND 32170927864 300 MG Orally once a day Inactive 1 capsule at bedtime Tramadol HCl ND 39585881516 50 MG Orally BID Active 1 tablet as needed HydrOXYzine HCl ND 91151208168 25 MG Orally Three times a day Active 1 tab Mucinex DM [facility] 03177529682 30-600 MG Orally every 12 hrs Active 1 tablet as needed Crestor ND 00641929142 10 MG Orally Once a day Active 1 tablet Azelastine HCl [facility] [id number] 0.05 % Ophthalmic Twice a day Active 1 drop into affected eye Vital Signs Date/Time: Nov 06, 2017 BMI 28.19 Index Weight 180 lbs Height 67 in Cardiac Monitoring Heart Rate 73 /min Blood Pressure Diastolic 81 mm Hg Blood Pressure Systolic 122 mm Hg Results No Known Results Immunizations Vaccine Administration Date FLUCELVAX QUADRIVALENT Nov 06, 2017 Summary Purpose [employer] Submission
--- OUTSIDE RECORDS SUMMARY | 2018-08-26 05:34 | XMS REPORT ---
Author Author [facility] Address Unknown Phone Unavailable Care Team Providers Care Office Equipment Mechanic Name Role Phone UGO LAWSON Unavailable Unavailable WESTONFEMIEDISONITA Unavailable Unavailable EVELYN OCHOA Unavailable Unavailable KARRIE DICKSON Unavailable Unavailable Problems This patient has no known problems. Allergies, Adverse Reactions, Alerts This patient has no known allergies or adverse reactions. Medications This patient has no known medications. Results Test Description Test Time Test Comments Text Results Atomic Results Result Comments ANG, REMOVAL OF TUNNELED CVC W/PORT 2018-08-21 13:31:00 Reason for Exam:->c34.12 FINAL REPORT Procedure: Removal of right chest [...] of right chest port Signed: Rola Crowley Verified Date/Time: 08/21/2018 13:31:45 Reading Location: [place] [id number] Angio Body Reading Room 2018-08-21 11:09:00 PARTIAL THROMBOPLASTIN TIME (BEAKER) (test kkte=294) 31.0 seconds 22.5-36.0 PROTHROMBIN TIME/[id number] 11:08:00* Test Item Value Reference Range Comments PROTIME (BEAKER) (test ojmk=701) 12.4 seconds 11.9-14.2 INR (BEAKER) (test trgd=530) 1.0 <=5.9 Effective 07/09/2018: PT Reference Range ChangeNew: 11.9-14.2 Previous: 11.7-14. 7RECOMMENDED COUMADIN/WARFARIN INR THERAPY RANGESSTANDARD DOSE: 2.0-3.0 Include s: PROPHYLAXIS for venous thrombosis, systemic embolization; TREATMENT for venou s thrombosis and/or pulmonary embolus.HIGH RISK: Target INR is 2.5-3.5 for patie nts wiht mechanical heart valves.CBC W/PLT COUNT & AUTO [id number] 11:04:00* Test Item Value Reference Range Comments WHITE BLOOD CELL COUNT (BEAKER) (test cwxy=450) 5.7 K/ L 3.5-10.5 RED BLOOD CELL COUNT (BEAKER) (test wuuj=912) 5.26 M/ L 4.63-6.08 HEMOGLOBIN (BEAKER) (test kkgb=249) 15.5 GM/DL 13.7-17.5 HEMATOCRIT (BEAKER) (test ssko=840) 49.3 % 40.1-51.0 MEAN CORPUSCULAR VOLUME (BEAKER) (test bpry=541) 93.7 fL 79.0-92.2 MEAN CORPUSCULAR HEMOGLOBIN (BEAKER) (test zdas=926) 29.5 pg 25.7-32.2 MEAN CORPUSCULAR HEMOGLOBIN CONC (BEAKER) (test kjxu=270) 31.4 GM/DL 32.3-36.5 RED CELL DISTRIBUTION WIDTH (BEAKER) (test hqno=298) 13.6 % 11.6-14.4 PLATELET COUNT (BEAKER) (test hlof=434) 185 K/CU MM 150-450 MEAN PLATELET VOLUME (BEAKER) (test qvpx=506) 9.3 fL 9.4-12.4 NUCLEATED RED BLOOD CELLS (BEAKER) (test kvtr=716) 0 /100 WBC 0-0 NEUTROPHILS RELATIVE PERCENT (BEAKER) (test lqql=344) 42 % LYMPHOCYTES RELATIVE PERCENT (BEAKER) (test tqac=074) 37 % MONOCYTES RELATIVE PERCENT (BEAKER) (test cdyc=578) 8 % EOSINOPHILS RELATIVE PERCENT (BEAKER) (test ciql=729) 12 % BASOPHILS RELATIVE PERCENT (BEAKER) (test xawq=825) 1 % NEUTROPHILS ABSOLUTE COUNT (BEAKER) (test skgs=689) 2.39 K/ L 1.78-5.38 LYMPHOCYTES ABSOLUTE COUNT (BEAKER) (test wyud=090) 2.09 K/ L 1.32-3.57 MONOCYTES ABSOLUTE COUNT (BEAKER) (test edki=729) 0.48 K/ L 0.30-0.82 EOSINOPHILS ABSOLUTE COUNT (BEAKER) (test odcn=634) 0.68 K/ L 0.04-0.54 BASOPHILS ABSOLUTE COUNT (BEAKER) (test jkkn=694) 0.04 K/ L 0.01-0.08 IMMATURE GRANULOCYTES-RELATIVE PERCENT (BEAKER) (test buyy=8023) 0 % 0-1 CT, CHEST, WITH IV [id number] 14:02:00FINAL REPORT EXAM: CT Chest WITH contrast 07/21/2018 9:28 AMINDICATION: cancer upper lobe left lungCOMPARISON: CT chest 02/24/2018 and 01/15/2018 TECHNIQUE: Chest [...] Radiation Protocol Committee (RPC). FINDINGS: LINES/ TUBES: Right- sided chest port remains in place. LUNGS AND AIRWAYS: Stable left upper lobectomy postsurgical changes. Mild scarring in the left lower lobe remains stable. A 2 mm groundglass nodule in the right upper lobe on series 2, image 35, previously measured 4 mm. No new pulmonary nodules. Airways are normal. PLEURA: The pleural spaces are clear. HEART AND MEDIASTINUM: The thyroid gland is n ormal. No mediastinal, hilar or axillary lymphadenopathy. The heart is normal in size. There is no pericardial effusion. Diffuse coronary artery calcificatio ns. The thoracic aorta and pulmonary arteries are unremarkable. UPPER ABDOMEN: Unremarkable. BONES: The visualized bony thorax is within normal limits. SOFT TI SSUES: Unremarkable. IMPRESSION: Stable left upper lobectomy postsurgical change s. No recurrent or metastatic disease in the chest. Signed: Lisbeth ZavaletaValentin MDReport Verified Date/Time: 07/22/2018 14:02:41 -CREATININE 2018-07-21 08:53:00* Test Item Value Reference Range Comments POC-CREATININE (TIA) (test pcwt=7787) 1.0 mg/dL 0.6-1.[address] [facility] [address] [facility] [address] POC-EGFR (TIA) (test yogt=0515) 77 mL/min/1.73M2 ANG, TUNNEL CATH CENTRAL INS W/PORT [id number] 15:40:00Reason for Exam:->C34.12 FINAL REPORT HISTORY: Lung cancer PROCEDURE: Following i nformed written consent, the patient's right cervical region and anterior chest wall were prepped draped in the usual sterile manner and maximum sterile barrier techniques were utilized. 2% lidocaine was given locally for anesthesia. Additi onally, the patient received 1 mg IV Versed and 50 mcg IV fentanyl for conscious sedation and pain control. Vital signs were monitored and remained stable. 1 g IV vancomycin was given prior to the procedure for antibiotic prophylaxis. Consc ious sedation and continuous patient monitoring were performed by the attending radiologist and a registered nurse for approximately 30 minutes during the proce dure. Access was gained to the right internal jugular vein using ultrasound guid ance a micropuncture needle. A short transverse incision was made in the right a nterior chest wall. Using blunt dissection, a subcutaneous pocket was created ju st beneath the incision. The micah catheter was tunneled from the pocket to the jugular access site in place through a peel-away sheath into position centrally under fluoroscopic control. The catheter was cut to appropriate length and attac hed to the portacatheter reservoir which was subsequently buried in the subcutan eous. The pocket was irrigated using an antibiotic solution enclosed using 3-0 M onocryl resorbable suture. Steri-Strips, dermabond and a sterile bandage were ap plied. There were no immediate complications. Patient was discharged from the ak partment in stable condition. FINDINGS: Spot film of the chest following portaca theter placement demonstrates the portacatheter to lie in expected position with its tip over the caval atrial junction. There is no pneumothorax. Ultrasound im age obtained prior to port placement demonstrates a patent and compressible righ t internal jugular vein without evidence for thrombosis. Ultrasound image of the right internal jugular vein was obtained and archived on PACs. IMPRESSION: 1. Successful uncomplicated placement of a right internal jugular chest port. Fluo roscopy time: 0.6 minutesEstimated dose in (Ka,r): 4.3 mGy Signed: Fausto Toney MDReport Verified Date/Time: 10/30/2017 15:40:30 Reading Location: [place] [address] Angio Body Reading Room /[id number] 09:07:00* Test Item Value Reference Range Comments PROTIME (BEAKER) (test pnwq=262) 12.5 seconds 11.7-14.7 INR (BEAKER) (test duzw=977) 0.9 <=5.9 PARTIAL THROMBOPLASTIN TIME (BEAKER) (test aacb=032) 29.8 seconds 22.5-36.0 RECOMMENDED COUMADIN/WARFARIN INR THERAPY RANGESSTANDARD DOSE: 2.0 - 3.0 Inclu radha: PROPHYLAXIS for venous thrombosis, systemic embolization; TREATMENT for clifford ous thrombosis and/or pulmonary embolus.HIGH RISK: Target INR is 2.5-3.5 for pat ients with mechanical heart valves.CBC W/PLT COUNT & AUTO [id number] 08:58:00* Test Item Value Reference Range Comments WHITE BLOOD CELL COUNT (BEAKER) (test gtkb=501) 4.9 K/ L 3.5-10.5 RED BLOOD CELL COUNT (BEAKER) (test vgii=389) 4.90 M/ L 4.63-6.08 HEMOGLOBIN (BEAKER) (test soyy=996) 15.0 GM/DL 13.7-17.5 HEMATOCRIT (BEAKER) (test jxfo=343) 45.9 % 40.1-51.0 MEAN CORPUSCULAR VOLUME (BEAKER) (test cymf=392) 93.7 fL 79.0-92.2 MEAN CORPUSCULAR HEMOGLOBIN (BEAKER) (test ismb=377) 30.6 pg 25.7-32.2 MEAN CORPUSCULAR HEMOGLOBIN CONC (BEAKER) (test wznt=413) 32.7 GM/DL 32.3-36.5 RED CELL DISTRIBUTION WIDTH (BEAKER) (test cxdr=675) 13.6 % 11.6-14.4 PLATELET COUNT (BEAKER) (test ztwh=529) 182 K/CU MM 150-450 MEAN PLATELET VOLUME (BEAKER) (test dbns=317) 8.8 fL 9.4-12.4 NUCLEATED RED BLOOD CELLS (BEAKER) (test vudn=018) 0 /100 WBC 0-0 NEUTROPHILS RELATIVE PERCENT (BEAKER) (test rrlz=546) 46 % LYMPHOCYTES RELATIVE PERCENT (BEAKER) (test fypa=559) 37 % MONOCYTES RELATIVE PERCENT (BEAKER) (test kxws=462) 11 % EOSINOPHILS RELATIVE PERCENT (BEAKER) (test nqvh=122) 5 % BASOPHILS RELATIVE PERCENT (BEAKER) (test lagx=995) 1 % NEUTROPHILS ABSOLUTE COUNT (BEAKER) (test iycv=593) 2.25 K/ L 1.78-5.38 LYMPHOCYTES ABSOLUTE COUNT (BEAKER) (test kjee=041) 1.79 K/ L 1.32-3.57 MONOCYTES ABSOLUTE COUNT (BEAKER) (test hexu=068) 0.55 K/ L 0.30-0.82 EOSINOPHILS ABSOLUTE COUNT (BEAKER) (test msbk=748) 0.26 K/ L 0.04-0.54 BASOPHILS ABSOLUTE COUNT (BEAKER) (test betd=330) 0.05 K/ L 0.01-0.08 IMMATURE GRANULOCYTES-RELATIVE PERCENT (BEAKER) (test itgn=1298) 0 % 0-1 TISSUE [id number] 09:23:00Surgical Pathology Report Case: [id number] Authorizing Provider: Marcelo Ochoa MD Collected: 08/13/2017 0901 Ordering Location: [facility] Received: 08/13/2017 1258 PERIOPERATIVE SERVICES Pathologist: Bg Trinh MD Specimens: A) - Lymph Node, Pulmonary Ligament, Station 9, Station 9 Lymph Node x2 B) - Lymph Node, Subcarinal, Station 7, Station 7 Lymph Node x3 C) - Lymph Node, Hilar, Left, Station 10L D) - Lymph Node, Interlobar, Left, Station 11L, STATION 11 LYMPH NODE E) - Lymph Node, Interlobar, Left, Station 11L, ADDITIONAL STATION 11 LYMPH NODE X 2 F) - Lymph Node, Interlobar, Left, Station 11L, ADDITIONAL STATION 11 LYMPH NODE G) - Lung, Left Upper Lobe, Left Upper Lobe, Frozen of Lung Margin, Frozen of Bronchial Margin H) - Lymph Node, Para- Aortic, Station 6 The addendum is issued to report the results of molecular tests performed at [facility]. RESULTS: - EGFR MUTATION: DETECTED - ALK GENE REARRANGEMENT: NOT DETECTED - BRAF MUTATION: NOT DETECTED - ROS1 GENE REARRANGEMENT: NOT DETECTED - PD-L1 22C3 FDA (KEYTRActual Experience): EXPRESSED - TUMOR PROPORTION SCORE: 20% - INTENSITY: 2+ Please see the attached scanned documents for more information. Addendum electronically signed by Bg Trinh MD on 09/27/2017 at 9:23 AMA. LYMPH NODE, PULMONARY LIGAMENT STATION 9, BIOPSY: - ONE BENIGN LYMPH NODE, NEGATIVE FOR METASTATIC CARCINOMA (0/1)B. LYMPH NODE, SUBCARINAL STATION 7, BIOPSY: - THREE BENIGN LYMPH NODES, NEGATIVE FOR METASTATIC CARCINOMA (0/3)C. LYMPH NODE, HILAR STATION 10, BIOPSY: - TWO BENIGN LYMPH NODES, NEGATIVE FOR METASTATIC CARCINOMA (0/2)D. LYMPH NODE, INTERLOBAR STATION 11, BIOPSY: - FOU R BENIGN LYMPH NODES, NEGATIVE FOR METASTATIC CARCINOMA (0/4)E. LYMPH NODE, INT ERLOBAR STATION 11, BIOPSY: - METASTATIC CARCINOMA TO ONE OUT OF THREE LYMPH N ODES (1/3)F. LYMPH NODE, INTERLOBAR STATION 11, BIOPSY: - ONE BENIGN LYMPH NO DE, , NEGATIVE FOR METASTATIC CARCINOMA (0/1)G. LUNG, LEFT UPPER LOBE, LOBECTOM Y: - INVASIVE ADENOCARCINOMA, MODERATELY DIFFERENTIATED, PREDOMINANTLY ACINAR PATTERN, 1.5 CM IN GREATEST DIMENSION - SURGICAL RESECTION MARGINS, NEGATI VE FOR TUMOR - VISCERAL PLEURAL INVASION IDENTIFIED (SEE COMMENT) - LYMPHOVA SCULAR INVASION PRESENT - THREE BENIGN LYMPH NODES, NEGATIVE FOR METASTATIC CA RCINOMA (0/3) - AJCC CLASSIFICATION (8TH EDITION) pT2, N1, Mx (SEE SYNOPTIC RE PORT AND COMMENT)H. LYMPH NODE, PARA-AORTIC STATION 6, BIOPSY: - ONE BENIGN L YMPH NODE, , NEGATIVE FOR METASTATIC CARCINOMA (0/1) Signing Pathologist Latoya camargo Phone Line: [phone] signed by Bg Trinh MD on 8 at 7:58 PMG. VVG stain was used to help evaluate the visceral involvement. Th e tumor is classified as pT2 due to visceral pleural invasion (synaoptic report is incorrectly classified as pT2a due to technical difficulty in the system). PERRI NG (Lung - All Specimens)SPECIMEN Procedure: Lobectomy Specimen Lateral ity: Left TUMOR Tumor Site: Upper lobe Histologic Type: Invasive a denocarcinoma, acinar predominant Histologic Grade: G2: Moderately differe ntiated Spread Through Air Spaces (WILLIAN): Not identified : Tumor Si ze: Greatest dimension in Centimeters (cm): 1.5 Centimeters (cm) Addition al Dimension in Centimeters (cm): 1.1 Centimeters (cm) Additional Dimensi on in Centimeters (cm): 1 Centimeters (cm) Tumor Focality: Single tumor T umor Extent: Visceral Pleura Invasion: Present Direct Invasion of Ad jacent Structures: No adjacent structures present Accessory Findings: Treatment Effect: No known presurgical therapy Lymphovascular Invasion: Present : Lymphatic MARGINS Margins: All margins are uninvolved by c arcinoma Margins Examined: Bronchial Margins Examined: Parenchymal Distance of Invasive Carcinoma from Closest Margin in Centimeters (cm): 4.2 Centimeters (cm) Closest Margin: Bronchial LYMPH NODES Number of Lymph N odes Involved: 1 Chris Stations Involved: 11R: Interlobar Extranodal E xtension: Not identified Number of Lymph Nodes Examined: 17 Chris Stat ions Examined: 7: Subcarinal Chris Stations Examined: 6: Para-aortic (a scending aorta or phrenic) Chris Stations Examined: 9L: Pulmonary ligament Chris Stations Examined: 10L: Hilar Chris Stations Examined: 11L: I nterlobar PATHOLOGIC STAGE CLASSIFICATION (pTNM, AJCC 8th Edition) Primary Tumor (pT): pT2a Regional Lymph Nodes (pN): pN1 ADDITIONAL FINDINGS Additional Pathologic Findings: Emphysema 36742 x 3, 27889, 07605, 08909, 09304 x 4, 88 313Left upper lobe lung massThe specimen is received in eight parts labeled with the patient's name and accession number which corresponds to patient's name and accession number on the accompanying requisition form. Part A is received in fo rmalin labeled "lymph node, pulmonary ligament, station 9" and consists of a 0.7 x 0.5 x 0.2 cm piece of resendiz-yellow to resendiz-brown soft tissue which is submitted in its entirety in cassette A1. Part B is received in formalin labeled "lymph no de, subcarinal, station 7" and consists of a 1.2 x 0.5 x 0.2 cm piece of resendiz-bro wn to brown-black soft tissue which is submitted in its entirety in cassette B1. Part C is received in formalin labeled "lymph node, hilar, left, station 1" and consists of 0.9 x 0.5 x 0.3 cm piece of resendiz-brown to brown-black soft tissue wh ich is submitted in toto in cassette C1. Part D is received in formalin labeled "lymph node, interlobar, left, station 11" and consists of a 0.9 x 0.8 x 0.2 cm aggregate of resendiz-brown to brown-black soft tissue pieces which are submitted in toto in cassette D1. Part E is received in formalin labeled "lymph node, interlo bar, left, station 11" and consists of a 1.1 x 0.8 x 0.2 cm aggregate of resendiz-bro wn to brown-black soft tissue pieces which are submitted in toto in cassette E1. Specimen F is received in formalin labeled "lymph node, interlobar, left, stati on 11" and consists of a 0.4 x 0.3 x 0.2 cm piece of resendiz-red to brown-black soft tissue pieces which is submitted in its entirety in cassette F1.Specimen G is r eceived fresh for intraoperative consultation and labeled "lung, left upper lobe " and consists of a 130 gm, 16.1 x 6.7 x 2.1 cm lung lobe with attached bronchus measuring 2.4 cm in diameter and 0.4 cm in length. The pleural surface is a dus ky resendiz meagan and diffusely anthracotic, with focal areas of red-spongy hyperinf lation at the apex and lingula. The superior pleural surface, 2.4 cm from the ap ex bears a puckering and thickening which measures 1.4 x 1.3 cm. Two staple line s are present at the parenchyma, one superior medial, and Y-shaped measuring 4.8 cm from anterior to posterior and 3.5 cm from superior to inferior, the second measuring 2.9 cm. The bronchial and parenchymal margins are inked and removed, t he pleural puckering is inked, and the specimen is serially sectioned longitudin ally from superior to inferior to reveal a firm, fibrotic, well-demarcated resendiz-w aga subpleural lesion corresponding to the area of pleural puckering with a yuliana tral anthracotic pigmentation which measures 1.5 x 1.1 x 1.0 cm. The lesion is l ocated 5.6 cm from the bronchial margin, 2.1 cm from staple line 1 and 10.4 cm f rom staple line 2. The mass does not appear to involve nearby bronchial structur es. The remainder of the lung parenchyma is spongy red-brown with diffuse anthra cosis. The respiratory epithelial lining is a smooth and glistening resendiz-white. N o other masses or lesions are grossly evident. Flame Cutting Machine Operator sections are submi tted as follows.Ink code: green, bronchial margin; meagan, pleural surface defec t; black, staple line 1; blue, staple line 2.Section code: FSG1, bronchial serena n, en face with lymph node; G2, loss prevention representative section of lesion; G3, staple marilin e 1, en face; G4, staple line 2 en face; G5, lesion to adjacent superior lung pa renchyma; G6, loss prevention representative lesion; G7, lesion to adjacent inferior parenchyma; G8, loss prevention representative anterior apical lung parenchyma; G9, loss prevention representative posteroa pical lung parenchyma; G10, loss prevention representative inferior anterior lung parenchyma; G1 1, loss prevention representative inferior posterior lung parenchyma; G12, loss prevention representative lingul a; G13, one candidate hilar lymph node, whole.Part H is received in formalin lab eled "lymph node, periaortic, station 6" and consists of a 0.3 x 0.3 x 0.2 cm pi sergey of resendiz-brown soft tissue which is submitted in its entirety in cassette H1. __/plFROZEN SECTION DIAGNOSIS: G1FS, LEFT UPPER LOBE, LOBECTOMY: - BRONCHIAL MARGIN AND LYMPH NODE [id number], LEFT UPPER LOBE, LOBECTOMY: - ADENOCARCINO MA These results are verbally reported to OR CV8 at 1:[address] Singleton.Per formed.RAD, CHEST, 1 VIEW, NON [id number] 13:39:00Reason for exam:->eval pneumothoraxShould this be performed at the bedside?->YesFINAL REPORT Chest one view. Clinical history: eval pneumothorax Comparison: 08/16/2017 Discussion: A frontal chest is provided. Cardiomediastinal contours are unchanged. A left chest tube has been removed. There is a small left apical pneumothorax, slightly larger since the previous exam. Recommend close follow- up. Aeration in the left midlung has improved. There is new linear opacity at the right lower lung favor atelectasis. No large effusion. Signed: Racheal Ibarraeport Verified Date/Time: 08/16/2017 13:39:18 Reading Location: [address] Consult Reading Room , CHEST, 1 VIEW, NON [id number] 08:19:00Reason for exam:->ptxShould this be performed at the bedside?->YesFINAL REPORT Chest one view. Clinical history: ptx Comparison: 08/15/2017 Discussion: A frontal chest is provided. Cardiomediastinal contours are unchanged. Left chest tube is in stable position. Low lung volume. No interval change in left mid to lower lung airspace opacity. A tiny left apical p neumothorax. Mild right basilar atelectasis. No large effusion. Signed: Racheal Ibarraort Verified Date/Time: 08/16/2017 08:19:51 Reading Location: [facility] Reading Room Electronically signed by: RACHEAL IBARRA M.D. on 08:19 AM [id number] 04:41:00* Test Item Value Reference Range Comments MAGNESIUM (BEAKER) (test lhvb=909) 2.3 mg/dL 1.6-2.6 Specimen slightly hemolyzed BASIC METABOLIC [id number] 04:41:00* Test Item Value Reference Range Comments SODIUM (BEAKER) (test adld=187) 135 meq/L 136-145 POTASSIUM (BEAKER) (test yqjb=555) 4.5 meq/L 3.5-5.1 Specimen slightly hemolyzed CHLORIDE (BEAKER) (test yikq=276) 102 meq/L 98-107 CO2 (BEAKER) (test oqwb=273) 24 meq/L 22-29 BLOOD UREA NITROGEN (BEAKER) (test rnug=797) 11 mg/dL 7-21 CREATININE (BEAKER) (test fmdn=054) 0.73 mg/dL 0.57-1.25 Specimen slightly hemolyzed GLUCOSE RANDOM (BEAKER) (test nqdg=421) 96 mg/dL 70-105 CALCIUM (BEAKER) (test jlad=040) 9.2 mg/dL 8.4-10.2 EGFR (BEAKER) (test hgro=0704) 111 mL/min/1.73 sq m ESTIMATED GFR IS NOT ACCURATE CREATININE CLEARANCE IN PREDICTING GLOMERULAR FILTRATION RATE. ESTIMATED GFR IS NOT APPLICABLE FOR DIALYSIS PATIENTS. CBC W/PLT COUNT & AUTO [id number] 04:33:00* Test Item Value Reference Range Comments WHITE BLOOD CELL COUNT (BEAKER) (test kcit=487) 7.2 K/ L 3.5-10.5 RED BLOOD CELL COUNT (BEAKER) (test ocwj=976) 4.46 M/ L 4.63-6.08 HEMOGLOBIN (BEAKER) (test ijqx=227) 13.5 GM/DL 13.7-17.5 HEMATOCRIT (BEAKER) (test hept=985) 41.7 % 40.1-51.0 MEAN CORPUSCULAR VOLUME (BEAKER) (test qqzu=645) 93.5 fL 79.0-92.2 MEAN CORPUSCULAR HEMOGLOBIN (BEAKER) (test rrng=116) 30.3 pg 25.7-32.2 MEAN CORPUSCULAR HEMOGLOBIN CONC (BEAKER) (test ebof=212) 32.4 GM/DL 32.3-36.5 RED CELL DISTRIBUTION WIDTH (BEAKER) (test lkla=700) 12.6 % 11.6-14.4 PLATELET COUNT (BEAKER) (test uurd=117) 120 K/CU MM 150-450 MEAN PLATELET VOLUME (BEAKER) (test nnrc=459) 11.0 fL 9.4-12.4 NUCLEATED RED BLOOD CELLS (BEAKER) (test masi=216) 0 /100 WBC 0-0 NEUTROPHILS RELATIVE PERCENT (BEAKER) (test ppdw=464) 67 % LYMPHOCYTES RELATIVE PERCENT (BEAKER) (test bfsr=700) 21 % MONOCYTES RELATIVE PERCENT (BEAKER) (test lamz=137) 8 % EOSINOPHILS RELATIVE PERCENT (BEAKER) (test mcfy=051) 4 % BASOPHILS RELATIVE PERCENT (BEAKER) (test tuxh=791) 1 % NEUTROPHILS ABSOLUTE COUNT (BEAKER) (test tjhn=283) 4.81 K/ L 1.78-5.38 LYMPHOCYTES ABSOLUTE COUNT (BEAKER) (test urum=646) 1.48 K/ L 1.32-3.57 MONOCYTES ABSOLUTE COUNT (BEAKER) (test yllw=188) 0.56 K/ L 0.30-0.82 EOSINOPHILS ABSOLUTE COUNT (BEAKER) (test edzy=993) 0.29 K/ L 0.04-0.54 BASOPHILS ABSOLUTE COUNT (BEAKER) (test tskd=948) 0.05 K/ L 0.01-0.08 IMMATURE GRANULOCYTES-RELATIVE PERCENT (BEAKER) (test bhfe=4185) 0 % 0-1 RAD, CHEST, 1 VIEW, NON [id number] 08:28:00Reason for exam:->ptxShould this be performed at the bedside?->YesFINAL REPORT CLINICAL HISTORY: ptx TECHNIQUE: 1 view of the chest. COMPARISON: 08/14/2017 IMPRESSION: The left chest tube is again seen without definitive evidence for pneumothorax. Left lower lung consolidation is unchanged. The cardiomediastinal silhouette is magnified by technique. Signed: Ken Grace MDReport Verified Date/Time: 08/15/2017 08:28:33 Reading Location: [facility] Radiology Reading Room ESIUM 2017-08-15 04:49:00* Test Item Value Reference Range Comments MAGNESIUM (BEAKER) (test amfm=231) 2.2 mg/dL 1.6-2.6 BASIC METABOLIC [id number] 04:49:00* Test Item Value Reference Range Comments SODIUM (BEAKER) (test wpnn=231) 131 meq/L 136-145 POTASSIUM (BEAKER) (test xkva=545) 3.9 meq/L 3.5-5.1 CHLORIDE (BEAKER) (test pepi=013) 100 meq/L 98-107 CO2 (BEAKER) (test gqgn=111) 27 meq/L 22-29 BLOOD UREA NITROGEN (BEAKER) (test tukl=797) 12 mg/dL 7-21 CREATININE (BEAKER) (test jcwk=986) 0.69 mg/dL 0.57-1.25 GLUCOSE RANDOM (BEAKER) (test yzkc=875) 117 mg/dL 70-105 CALCIUM (BEAKER) (test lthm=582) 8.8 mg/dL 8.4-10.2 EGFR (BEAKER) (test tohm=5636) 118 mL/min/1.73 sq m ESTIMATED GFR IS NOT ACCURATE CREATININE CLEARANCE IN PREDICTING GLOMERULAR FILTRATION RATE. ESTIMATED GFR IS NOT APPLICABLE FOR DIALYSIS PATIENTS. CBC W/PLT COUNT & AUTO [id number] 04:24:00* Test Item Value Reference Range Comments WHITE BLOOD CELL COUNT (BEAKER) (test lbso=296) 10.1 K/ L 3.5-10.5 RED BLOOD CELL COUNT (BEAKER) (test thxg=397) 4.36 M/ L 4.63-6.08 HEMOGLOBIN (BEAKER) (test dojx=000) 12.9 GM/DL 13.7-17.5 HEMATOCRIT (BEAKER) (test rcpa=996) 40.4 % 40.1-51.0 MEAN CORPUSCULAR VOLUME (BEAKER) (test idxp=541) 92.7 fL 79.0-92.2 MEAN CORPUSCULAR HEMOGLOBIN (BEAKER) (test tlky=031) 29.6 pg 25.7-32.2 MEAN CORPUSCULAR HEMOGLOBIN CONC (BEAKER) (test tnfs=771) 31.9 GM/DL 32.3-36.5 RED CELL DISTRIBUTION WIDTH (BEAKER) (test gqvw=770) 12.7 % 11.6-14.4 PLATELET COUNT (BEAKER) (test vekn=636) 193 K/CU MM 150-450 MEAN PLATELET VOLUME (BEAKER) (test kcky=818) 9.7 fL 9.4-12.4 NUCLEATED RED BLOOD CELLS (BEAKER) (test riur=510) 0 /100 WBC 0-0 NEUTROPHILS RELATIVE PERCENT (BEAKER) (test wlhc=623) 81 % LYMPHOCYTES RELATIVE PERCENT (BEAKER) (test dlyp=822) 11 % MONOCYTES RELATIVE PERCENT (BEAKER) (test psbm=249) 7 % EOSINOPHILS RELATIVE PERCENT (BEAKER) (test cejh=321) 0 % BASOPHILS RELATIVE PERCENT (BEAKER) (test dhlk=530) 0 % NEUTROPHILS ABSOLUTE COUNT (BEAKER) (test xjlv=127) 8.20 K/ L 1.78-5.38 LYMPHOCYTES ABSOLUTE COUNT (BEAKER) (test mmwq=209) 1.15 K/ L 1.32-3.57 MONOCYTES ABSOLUTE COUNT (BEAKER) (test vfaf=493) 0.69 K/ L 0.30-0.82 EOSINOPHILS ABSOLUTE COUNT (BEAKER) (test tvnd=277) 0.04 K/ L 0.04-0.54 BASOPHILS ABSOLUTE COUNT (BEAKER) (test lxhy=774) 0.02 K/ L 0.01-0.08 IMMATURE GRANULOCYTES-RELATIVE PERCENT (BEAKER) (test zzsl=1449) 0 % 0-1 RAD, CHEST, 1 VIEW, NON [id number] 15:03:00Reason for exam:->chest tube to water sealShould this be performed at the bedside?->YesFINAL REPORT AP chest. HISTORY: Chest tube to waterseal COMPARISON: 08/14/2017 IMPRESSION:Left thoracostomy tube present. Small left apical pneumothorax. Right lung clear. Stable cardiac silhouette. Signed: Jing Cannon Verified Date/Time: 08/14/2017 15:03:54 Reading Location: [facility] C013X Ortho Consult Reading Room , CHEST, 1 VIEW, NON [id number] 05:01:00Reason for exam:->ptxShould this be performed at the bedside?->YesFINAL REPORT Comparison exam: 08/13/2017 Small focal area of the left midlung field atelectasis or consolidation. No pneumothorax or significant pleural effusion. Stable cardiomediastinal contours. Left chest tube stable in position. Signed: Blaise Mckinney Verified Date/Time: 08/14/2017 05:01:23 Reading Location: [facility] C013T Transitional Reading Room [id number] 03:49:00* Test Item Value Reference Range Comments MAGNESIUM (BEAKER) (test zmko=335) 2.3 mg/dL 1.6-2.6 BASIC METABOLIC [id number] 03:49:00* Test Item Value Reference Range Comments SODIUM (BEAKER) (test muoj=088) 137 meq/L 136-145 POTASSIUM (BEAKER) (test rfld=775) 4.3 meq/L 3.5-5.1 CHLORIDE (BEAKER) (test prpg=019) 105 meq/L 98-107 CO2 (BEAKER) (test nshr=590) 24 meq/L 22-29 BLOOD UREA NITROGEN (BEAKER) (test gpbd=979) 15 mg/dL 7-21 CREATININE (BEAKER) (test qlyh=780) 0.78 mg/dL 0.57-1.25 GLUCOSE RANDOM (BEAKER) (test hhat=969) 129 mg/dL 70-105 CALCIUM (BEAKER) (test ljjy=361) 8.7 mg/dL 8.4-10.2 EGFR (BEAKER) (test wolp=8503) 103 mL/min/1.73 sq m ESTIMATED GFR IS NOT ACCURATE CREATININE CLEARANCE IN PREDICTING GLOMERULAR FILTRATION RATE. ESTIMATED GFR IS NOT APPLICABLE FOR DIALYSIS PATIENTS. CBC W/PLT COUNT & AUTO [id number] 03:29:00* Test Item Value Reference Range Comments WHITE BLOOD CELL COUNT (BEAKER) (test rxuk=832) 10.2 K/ L 3.5-10.5 RED BLOOD CELL COUNT (BEAKER) (test xsbs=829) 4.45 M/ L 4.63-6.08 HEMOGLOBIN (BEAKER) (test ixnk=958) 13.4 GM/DL 13.7-17.5 HEMATOCRIT (BEAKER) (test lxgj=416) 40.7 % 40.1-51.0 MEAN CORPUSCULAR VOLUME (BEAKER) (test wbic=600) 91.5 fL 79.0-92.2 MEAN CORPUSCULAR HEMOGLOBIN (BEAKER) (test nwne=372) 30.1 pg 25.7-32.2 MEAN CORPUSCULAR HEMOGLOBIN CONC (BEAKER) (test encg=524) 32.9 GM/DL 32.3-36.5 RED CELL DISTRIBUTION WIDTH (BEAKER) (test qbgd=390) 12.9 % 11.6-14.4 PLATELET COUNT (BEAKER) (test dlsm=204) 213 K/CU MM 150-450 MEAN PLATELET VOLUME (BEAKER) (test vfwc=854) 9.8 fL 9.4-12.4 NUCLEATED RED BLOOD CELLS (BEAKER) (test fjub=155) 0 /100 WBC 0-0 NEUTROPHILS RELATIVE PERCENT (BEAKER) (test yotc=825) 77 % LYMPHOCYTES RELATIVE PERCENT (BEAKER) (test zeuf=617) 13 % MONOCYTES RELATIVE PERCENT (BEAKER) (test gtof=412) 9 % EOSINOPHILS RELATIVE PERCENT (BEAKER) (test sxdc=588) 0 % BASOPHILS RELATIVE PERCENT (BEAKER) (test pcqz=310) 0 % NEUTROPHILS ABSOLUTE COUNT (BEAKER) (test yphq=524) 7.84 K/ L 1.78-5.38 LYMPHOCYTES ABSOLUTE COUNT (BEAKER) (test lcpy=098) 1.27 K/ L 1.32-3.57 MONOCYTES ABSOLUTE COUNT (BEAKER) (test wvlq=133) 0.96 K/ L 0.30-0.82 EOSINOPHILS ABSOLUTE COUNT (BEAKER) (test mjmx=558) 0.02 K/ L 0.04-0.54 BASOPHILS ABSOLUTE COUNT (BEAKER) (test lpko=490) 0.03 K/ L 0.01-0.08 IMMATURE GRANULOCYTES-RELATIVE PERCENT (BEAKER) (test llyw=7993) 1 % 0-1 RAD, CHEST, 1 VIEW, NON [id number] 15:04:00Reason for exam:->ptxShould this be performed at the bedside?->YesFINAL REPORT HISTORY : ptx. Comparison: 08/12/2017 Comment: Single portable view of the chest was obtained. The cardiac silhouette size is enlarged. There is widening of the mediastinum. There are findings of pulmonary venous congestion. A left-sided large bore chest tube is in place. There is some left basilar airspace disease/consolidation. Some air is identified in the left chest/upper abdominal wall. The stomach is moderately distended with air. No pneumothorax is seen. No definite pleural effusion is visualized. Signed: Maryam Barnard MDReport Verified Date/Time: 08/13/2017 15:04:24 Reading Location: [address] Consult Reading Room [id number] 14:40:00* Test Item Value Reference Range Comments MAGNESIUM (BEAKER) (test rajy=414) 2.1 mg/dL 1.6-2.6 BASIC METABOLIC [id number] 14:40:00* Test Item Value Reference Range Comments SODIUM (BEAKER) (test ulrp=893) 140 meq/L 136-145 POTASSIUM (BEAKER) (test vdwz=064) 4.4 meq/L 3.5-5.1 CHLORIDE (BEAKER) (test uthp=401) 109 meq/L 98-107 CO2 (BEAKER) (test glwq=958) 19 meq/L 22-29 BLOOD UREA NITROGEN (BEAKER) (test exkf=539) 18 mg/dL 7-21 CREATININE (BEAKER) (test rmwn=293) 0.87 mg/dL 0.57-1.25 GLUCOSE RANDOM (BEAKER) (test vubf=641) 157 mg/dL 70-105 CALCIUM (BEAKER) (test zynb=534) 8.5 mg/dL 8.4-10.2 EGFR (BEAKER) (test nrsf=2213) 90 mL/min/1.73 sq m ESTIMATED GFR IS NOT ACCURATE CREATININE CLEARANCE IN PREDICTING GLOMERULAR FILTRATION RATE. ESTIMATED GFR IS NOT APPLICABLE FOR DIALYSIS PATIENTS. [id number] 14:35:00* Test Item Value Reference Range Comments PARTIAL THROMBOPLASTIN TIME (BEAKER) (test pxxt=174) 29.2 seconds 22.5-36.0 PROTHROMBIN TIME/[id number] 14:34:00* Test Item Value Reference Range Comments PROTIME (BEAKER) (test ioal=161) 14.4 seconds 11.7-14.7 INR (BEAKER) (test wcsn=156) 1.1 <=5.9 RECOMMENDED COUMADIN/WARFARIN INR THERAPY RANGESSTANDARD DOSE: 2.0 - 3.0 Inclu radha: PROPHYLAXIS for venous thrombosis, systemic embolization; TREATMENT for clifford ous thrombosis and/or pulmonary embolus.HIGH RISK: Target INR is 2.5-3.5 for pat ients with mechanical heart valves.CBC (HEMOGRAM ONLY)2017-08-13 14:26:00* Test Item Value Reference Range Comments WHITE BLOOD CELL COUNT (BEAKER) (test zedd=416) 18.6 K/ L 3.5-10.5 RED BLOOD CELL COUNT (BEAKER) (test wium=093) 4.73 M/ L 4.63-6.08 HEMOGLOBIN (BEAKER) (test zgqq=554) 14.3 GM/DL 13.7-17.5 HEMATOCRIT (BEAKER) (test zsuz=272) 43.6 % 40.1-51.0 MEAN CORPUSCULAR VOLUME (BEAKER) (test zozu=104) 92.2 fL 79.0-92.2 MEAN CORPUSCULAR HEMOGLOBIN (BEAKER) (test mogk=566) 30.2 pg 25.7-32.2 MEAN CORPUSCULAR HEMOGLOBIN CONC (BEAKER) (test mlhq=795) 32.8 GM/DL 32.3-36.5 RED CELL DISTRIBUTION WIDTH (BEAKER) (test dmjo=473) 12.6 % 11.6-14.4 PLATELET COUNT (BEAKER) (test rbbn=342) 241 K/CU MM 150-450 MEAN PLATELET VOLUME (BEAKER) (test iipn=332) 9.7 fL 9.4-12.4 NUCLEATED RED BLOOD CELLS (BEAKER) (test vvhb=395) 0 /100 WBC 0-0 CALCIUM, [id number] 14:21:00* Test Item Value Reference Range Comments CALCIUM IONIZED (BEAKER) (test kvcu=536) 1.09 mmol/L 1.12-1.27 PH, BLOOD (BEAKER) (test zgno=2449) 7.22 CALCIUM, [id number] 11:36:00* Test Item Value Reference Range Comments CALCIUM IONIZED (BEAKER) (test dgbm=565) 1.09 mmol/L 1.12-1.27 PH, BLOOD (BEAKER) (test jxwj=0157) 7.29 BLOOD GAS, [id number] 11:35:00* Test Item Value Reference Range Comments PH ARTERIAL (BEAKER) (test awep=529) 7.30 7.35-7.45 PCO2 ARTERIAL (BEAKER) (test sfvt=860) 48 mmHg 35-45 PO2 ARTERIAL (BEAKER) (test ckvw=504) 253 mmHg 80-90 O2 SATURATION ARTERIAL (BEAKER) (test qzky=301) 99.5 % 96.0-97.0 HCO3 ARTERIAL (BEAKER) (test phri=142) 24 mmol/L 21-29 BASE EXCESS ARTERIAL (BEAKER) (test uhid=970) -3.5 mmol/L -2.0-3.0 PATIENT TEMPERATURE (BEAKER) (test nytu=4019) 36.0 C FIO2 (BEAKER) (test dbkv=6506) 100.0 % POTASSIUM-STAT [id number] 11:35:00* Test Item Value Reference Range Comments POTASSIUM (BEAKER) (test yvuw=558) 4.6 meq/L 3.6-5.5 GLUCOSE-STAT [id number] 11:35:00* Test Item Value Reference Range Comments GLUCOSE RANDOM (BEAKER) (test opnf=867) 134 mg/dL 70-110 HGB/HCT (H&H) - STAT [id number] 11:35:00* Test Item Value Reference Range Comments HEMOGLOBIN (BEAKER) (test hfxv=595) 15.0 g/dL 13.0-16.8 HEMATOCRIT (BEAKER) (test vnre=927) 44.0 % 40.0-50.0 SODIUM NA-STAT [id number] 11:34:00* Test Item Value Reference Range Comments SODIUM (BEAKER) (test ybgu=025) 138 meq/L 135-148 BLOOD GAS, [id number] 09:57:00* Test Item Value Reference Range Comments PH ARTERIAL (BEAKER) (test jsdn=057) 7.36 7.35-7.45 PCO2 ARTERIAL (BEAKER) (test dpyw=616) 40 mmHg 35-45 PO2 ARTERIAL (BEAKER) (test rfiy=332) 310 mmHg 80-90 O2 SATURATION ARTERIAL (BEAKER) (test pghm=313) 99.7 % 96.0-97.0 HCO3 ARTERIAL (BEAKER) (test pnxb=901) 22 mmol/L 21-29 BASE EXCESS ARTERIAL (BEAKER) (test eqol=441) -3.3 mmol/L -2.0-3.0 PATIENT TEMPERATURE (BEAKER) (test fgiz=1231) 36.2 C FIO2 (BEAKER) (test pqju=5437) 100.0 % CALCIUM, [id number] 08:44:00* Test Item Value Reference Range Comments CALCIUM IONIZED (BEAKER) (test cqfl=874) 0.84 mmol/L 1.12-1.27 PH, BLOOD (BEAKER) (test oefy=8982) 7.46 HEMOGLOBIN-STAT [id number] 08:42:00* Test Item Value Reference Range Comments HEMOGLOBIN (BEAKER) (test yjng=109) 11.2 g/dL 13.0-16.8 HEMATOCRIT-STAT [id number] 08:42:00* Test Item Value Reference Range Comments HEMATOCRIT (BEAKER) (test kacs=915) 33.0 % 40.0-50.0 BLOOD GAS, [id number] 08:42:00* Test Item Value Reference Range Comments PH ARTERIAL (BEAKER) (test urvz=410) 7.48 7.35-7.45 PCO2 ARTERIAL (BEAKER) (test abfe=813) 22 mmHg 35-45 PO2 ARTERIAL (BEAKER) (test saxp=102) 194 mmHg 80-90 O2 SATURATION ARTERIAL (BEAKER) (test gtde=925) 99.5 % 96.0-97.0 HCO3 ARTERIAL (BEAKER) (test nnmv=142) 16 mmol/L 21-29 BASE EXCESS ARTERIAL (BEAKER) (test lcvp=932) -6.5 mmol/L -2.0-3.0 PATIENT TEMPERATURE (BEAKER) (test xutd=4846) 36.0 C FIO2 (BEAKER) (test bbmr=8151) 100.0 % POTASSIUM-STAT [id number] 08:42:00* Test Item Value Reference Range Comments POTASSIUM (BEAKER) (test yedz=274) 2.5 meq/L 3.6-5.5 HGB/HCT (H&H) - STAT [id number] 08:42:00* Test Item Value Reference Range Comments HEMOGLOBIN (BEAKER) (test dgzm=682) 11.2 GM/DL 13.0-16.8 HEMATOCRIT (BEAKER) (test bbhm=370) 33.0 % 40.0-50.0 GLUCOSE-STAT [id number] 08:41:00* Test Item Value Reference Range Comments GLUCOSE RANDOM (BEAKER) (test rjei=424) 76 mg/dL 70-110 SODIUM NA-STAT [id number] 08:41:00* Test Item Value Reference Range Comments SODIUM (BEAKER) (test enti=902) 140 meq/L 135-148 POCT-GLUCOSE [id number] 06:02:00* Test Item Value Reference Range Comments POC-GLUCOSE METER (BEAKER) (test cezg=3457) 102 mg/dL 70-[address] [facility] [address] [address] RAD, CHEST, 2 [id number] 11:59:00Reason for exam:->lung cancerFINAL REPORT HISTORY : lung cancer. Comparison: 08/02/2017 Comment: Two views of the chest, PA and lateral, were obtained. The cardiac silhouette size is enlarged. There is no pleural effusion, pneumothorax or infiltrate. No lytic or blastic abnormalities. Projecting over the left upper lung, there is a nodular density measuring up to 1.6 cm. There is a likely fiducial marker identified over the lung nodule. Mild multilevel degenerative changes of the vi sualized thoracolumbar spine are seen. Impression: Nodules/mass in the left uppe r lung associated with a likely fiducial marker. Signed: Maryam Barnardeport V erified Date/Time: 08/12/2017 11:59:20 Reading Location: [facility] [place] Reading Room 1 1:59 AM PT/[id number] 11:57:00* Test Item Value Reference Range Comments PROTIME (BEAKER) (test rrqo=988) 13.6 seconds 11.7-14.7 INR (BEAKER) (test vpwg=986) 1.0 <=5.9 PARTIAL THROMBOPLASTIN TIME (BEAKER) (test uuvx=511) 31.3 seconds 22.5-36.0 RECOMMENDED COUMADIN/WARFARIN INR THERAPY RANGESSTANDARD DOSE: 2.0 - 3.0 Inclu radha: PROPHYLAXIS for venous thrombosis, systemic embolization; TREATMENT for clifford ous thrombosis and/or pulmonary embolus.HIGH RISK: Target INR is 2.5-3.5 for pat ients with mechanical heart valves.COMPREHENSIVE METABOLIC [id number] 11:51:00* Test Item Value Reference Range Comments TOTAL PROTEIN (BEAKER) (test rvjg=837) 8.1 gm/dL 6.0-8.3 ALBUMIN (BEAKER) (test avsn=3955) 4.7 g/dL 3.5-5.0 ALKALINE PHOSPHATASE (BEAKER) (test zofr=043) 48 U/L 40-150 BILIRUBIN TOTAL (BEAKER) (test yspy=000) 0.5 mg/dL 0.2-1.2 SODIUM (BEAKER) (test ujcg=527) 140 meq/L 136-145 POTASSIUM (BEAKER) (test ogpl=644) 4.4 meq/L 3.5-5.1 CHLORIDE (BEAKER) (test ueja=310) 103 meq/L 98-107 CO2 (BEAKER) (test wwad=484) 27 meq/L 22-29 BLOOD UREA NITROGEN (BEAKER) (test vbvh=238) 19 mg/dL 7-21 CREATININE (BEAKER) (test zibf=302) 0.85 mg/dL 0.57-1.25 GLUCOSE RANDOM (BEAKER) (test puop=896) 88 mg/dL 70-105 CALCIUM (BEAKER) (test thcs=224) 9.8 mg/dL 8.4-10.2 AST (SGOT) (BEAKER) (test dkvw=060) 24 U/L 5-34 ALT (SGPT) (BEAKER) (test fidl=149) 38 U/L 6-55 EGFR (BEAKER) (test dktc=4620) 93 mL/min/1.73 sq m ESTIMATED GFR IS NOT ACCURATE CREATININE CLEARANCE IN PREDICTING GLOMERULAR FILTRATION RATE. ESTIMATED GFR IS NOT APPLICABLE FOR DIALYSIS PATIENTS. CBC W/PLT COUNT & AUTO [id number] 11:28:00* Test Item Value Reference Range Comments WHITE BLOOD CELL COUNT (BEAKER) (test ofiv=679) 5.9 K/ L 3.5-10.5 RED BLOOD CELL COUNT (BEAKER) (test vxja=193) 5.40 M/ L 4.63-6.08 HEMOGLOBIN (BEAKER) (test hbch=305) 15.9 GM/DL 13.7-17.5 HEMATOCRIT (BEAKER) (test ozdk=781) 49.9 % 40.1-51.0 MEAN CORPUSCULAR VOLUME (BEAKER) (test wois=382) 92.4 fL 79.0-92.2 MEAN CORPUSCULAR HEMOGLOBIN (BEAKER) (test zwlb=195) 29.4 pg 25.7-32.2 MEAN CORPUSCULAR HEMOGLOBIN CONC (BEAKER) (test ajtb=670) 31.9 GM/DL 32.3-36.5 RED CELL DISTRIBUTION WIDTH (BEAKER) (test qxtr=290) 12.7 % 11.6-14.4 PLATELET COUNT (BEAKER) (test cvjb=539) 231 K/CU MM 150-450 MEAN PLATELET VOLUME (BEAKER) (test mvrr=520) 9.7 fL 9.4-12.4 NUCLEATED RED BLOOD CELLS (BEAKER) (test zgsg=576) 0 /100 WBC 0-0 NEUTROPHILS RELATIVE PERCENT (BEAKER) (test ptuf=699) 54 % LYMPHOCYTES RELATIVE PERCENT (BEAKER) (test cunv=284) 33 % MONOCYTES RELATIVE PERCENT (BEAKER) (test vlxx=019) 8 % EOSINOPHILS RELATIVE PERCENT (BEAKER) (test uwsy=362) 5 % BASOPHILS RELATIVE PERCENT (BEAKER) (test rjmx=384) 1 % NEUTROPHILS ABSOLUTE COUNT (BEAKER) (test pcza=952) 3.15 K/ L 1.78-5.38 LYMPHOCYTES ABSOLUTE COUNT (BEAKER) (test liar=051) 1.92 K/ L 1.32-3.57 MONOCYTES ABSOLUTE COUNT (BEAKER) (test xofv=999) 0.46 K/ L 0.30-0.82 EOSINOPHILS ABSOLUTE COUNT (BEAKER) (test xzhc=302) 0.29 K/ L 0.04-0.54 BASOPHILS ABSOLUTE COUNT (BEAKER) (test nozl=080) 0.05 K/ L 0.01-0.08 IMMATURE GRANULOCYTES-RELATIVE PERCENT (BEAKER) (test metl=6410) 0 % 0-1 FINE NEEDLE ASPIRATE BY [id number] 14:35:00Medical Cytology Report Case: [id number] Authorizing Provider: Karrie Dickson MD Collected: 08/02/2017 3482 Ordering Location: [facility] Received: 08/05/2017 1047 SERVICES Pathologist: Leisa Rob MD Specimen: Lymph Node, Interlobar, Left, Station 11L LYMPH NODE, INTERLOBAR, LEFT, STATION 11L EBUS FNA BY CLINICIAN (CYTOSPINS AND CELL BLOCK OF ASPIRATE): - NEGATIVE FOR MALIGNANCY Signing Pathologist Direct Phone Line: [phone] signed by Leisa Rob MD on 08/06/2017 at 2:35 PMPlease see cytopathology cases [id number], 2070, and [id number], 90571Cliia diagnosed [place] lung cancer, here for stagingLYMPH NODE, INTERLOBAR, LEFT, STATION 11L EBUS FNA30 mls in cytorich red; 2 cytospins, cell blockCollected: [id number]: [id number], [facility] of [facility]ology, [address] [place] [address], [facility], [facility], [address] [place] [address], ARXO NEEDLE ASPIRATE BY EBUS 2017-08-06 14:18:00Medical Cytology Report Case: [id number] Authorizing Provider: Karrie Dickson MD Collected: 08/02/2017 1649 Ordering Location: [facility] Received: 08/05/2017 1047 SERVICES Pathologist: Leisa Rob MD Specimen: Lymph Node, Subcarinal, Station 7 LYMPH NODE, SUBCARINAL, STATION 7 EBUS FNA BY CLINICIAN (CYTOSPINS AND CELL BLOCK OF ASPIRATE): - NEGATIVE FOR MALIGNANCY Signing Pathologist Direct Phone Line: [phone] signed by Leisa Rob MD on 08/06/2017 at 2:18 PMPlease see cytopathology cases [id number], 2070, and [id number], [id number] diagnosed [place] lung cancer, here for stagingLYMPH NODE, SUBCARINAL, STATION 7 EBUS FNA30 mls in cytorich red; 2 cytospins, cell blockCollected: [id number]: [id number] [facility], Department of Pathology, [address] [place] [address], [facility], [facility], [address] [place] [address], DUSS NEEDLE ASPIRATE BY EBUS 2017-08-06 14:15:00Medical Cytology Report Case: [id number] Authorizing Provider: Karrie Dickson MD Collected: 08/02/2017 1647 Ordering Location: [facility] Received: 08/05/2017 1047 SERVICES Pathologist: Leisa Rob MD Specimen: Lymph Node, Lower Paratracheal, Right, Station 4R LYMPH NODE, LOWER PARATRACHEAL, RIGHT, STATION 4R EBUS FNA BY CLINICIAN (CYTOSPINS AND CELL BLOCK OF ASPIRATE): - NEGATIVE FOR MALIGNANCY Signing Pathologist Direct Phone Line: [phone] signed by Leisa Rob MD on 08/06/2017 at 2:15 PMPlease see cytopathology cases [id number], [id number], and [id number], [id number] diagnosed [place] lung cancer, here for stagingLYMPH NODE, LOWER PARATRACHEAL, RIGHT, STATION 4R EBUS FNA30 mls in cytorich red; 2 cytospins, cell blockCollected: [id number]: [id number] Community Hospital, Department of Pathology, [address] [place] [address], [facility], [facility], [address] [place] [address], ISXD NEEDLE ASPIRATE BY EBUS 2017-08-06 14:11:00Medical Cytology Report Case: [id number] Authorizing Provider: Karrie Dickson MD Collected: 08/02/2017 164 Ordering Location: [facility] Received: 08/05/2017 1047 SERVICES Pathologist: Leisa Rob MD Specimen: Lymph Node, Interlobar, Right, Station 11R LYMPH NODE, INTERLOBAR RIGHT, STATION 11R EBUS FNA BY CLINICIAN (CYTOSPINS AND CELL BLOCK OF ASPIRATE): - NEGATIVE FOR MALIGNANCY Signing Pathologist Direct Phone Line: [phone] signed by Leisa Rob MD on 08/06/2017 at 2:11 PMPlease see cytopathology cases [id number], 2070, and [id number], [id number] diagnosed [place] lung cancer, here for stagingLYMPH NODE, INTERLOBAR RIGHT, STATION 11R EBUS FNA30 mls in cytorich red; 2 cytospins, cell blockCollected: [id number]: [id number] [facility], Department of Pathology, [address] [place] [address], [facility], Department of [facility], [address] [place] [address], ZUOQ FNA [id number] 12:00:00* Test Item Value Reference Range Comments CYTOLOGY RESULT POINTER (BEAKER) (test avga=1672) See Separate Report EBUS FNA [id number] 12:00:00* Test Item Value Reference Range Comments CYTOLOGY RESULT POINTER (BEAKER) (test xjnh=5794) See Separate Report EBUS FNA [id number] 12:00:00* Test Item Value Reference Range Comments CYTOLOGY RESULT POINTER (BEAKER) (test yuav=8476) See Separate Report EBUS FNA [id number] 12:00:00* Test Item Value Reference Range Comments CYTOLOGY RESULT POINTER (BEAKER) (test tljg=9321) See Separate Report RAD, CHEST, 1 VIEW, NON [id number] 18:02:00Reason for exam:->s/p [place] FIDUCIAL PLACEMENTFINAL REPORT Chest one view. Clinical history: s/p [place] FIDUCIAL PLACEMENT Comparison: No priors Discussion: A frontal chest is provided. Cardiomediastinal contours are unremarkable, allowing for portable technique. Somewhat low lung volume. A fiducial marker projects over a nodular lesion at the left upper lung. Right lung appears grossly clear. There is subsegmental bibasilar atelectasis. No laura pulmonary edema, pneumothorax, or large effusion. Signed: Racheal Ibarra Verified Date/Time: 08/02/2017 18:02:33 Reading Location: [facility] B1 C013W Consult Reading Room , WATER SUPERINTENDENT IN OR/30 MINUTE [id number] 17:34:00Reason for exam:->ebusFINAL REPORT Fluoroscopy 1 view intraoperative 08/02/2017 5:33 PM CLINICAL HISTORY: Instrument localization COMPARISON: None available IMPRESSION: Please correlate imaging report findings with the procedure note prepared by Dr. Salazar, as an intra-procedure imaging consultation was not requested. Reported fluoroscopy time: 16.0 seconds. Signed: Keon Tovar Verified Date/Time: 08/02/2017 17:34:46 Reading Location: [facility] 05:3 4 PM
[2018-08-26 08:00] VITALS: BP 137/84
== END | disposition home or self-care (01) ==
LOC: OR 05:21
PROVIDERS: ATTEND Internal Medicine Gastroenterology
DX: Z12.11 Encounter for screening for malignant neoplasm of colon (principal); D12.5 Benign neoplasm of sigmoid colon; K57.30 Diverticulosis of large intestine without perforation or abscess without bleeding; K64.8 Other hemorrhoids; E78.5 Hyperlipidemia, unspecified; R00.1 Bradycardia, unspecified; Z01.810 Encounter for preprocedural cardiovascular examination; Z01.812 Encounter for preprocedural laboratory examination; Z68.30 Body mass index [BMI] 30.0-30.9, adult; Z85.118 Personal history of other malignant neoplasm of bronchus and lung; Z92.21 Personal history of antineoplastic chemotherapy
CPT/HCPCS: 36415; 45380; 80053; 85025; 85610; 85730; 93005; J2250; J2704; J3010; 45378; 45384